=== PATIENT | female | born 1995 | race Asian ===

== ENCOUNTER 2020-01-01 03:22 | Emergency (ER) | payer BC, SELFPAY ==
[2020-01-01 03:27] VITALS: BP 123/76; PULSE 100; RESP 18; TEMP 37.1; O2SAT 100
--- NOTE | 2020-01-01 03:58 | ED.EYEPROB ---
HPI - Eye Problem General Chief complaint: Eye Problems Stated complaint: RIGHT EYE PROBLEM Time Seen by Provider: 01/01/20 03:29 History of Present Illness HPI Narrative: Pt c/o right eye redness and eyelid swelling, started tonight, denies any injury. Denies eye pain or visual disturbance. Pt states could be from exposure to a cat last night, which she is allergic to. Related Data Allergies Allergy/AdvReac Type Severity Reaction Status Date / Time cat dander Allergy Swelling Verified 01/01/20 03:26 Review of Systems Review of Systems: All systems reviewed & are unremarkable except as noted in HPI and below PMFSH Social History Social History Gender identity (if verbalized by the patient): Female Exam Const: General: healthy appearing, no acute distress and alert HENMT: Head: normal to inspection Eyes: Conjunctivae: abnormal conjunctivae and conjunctival abnormality (erythematous, injected, mild upper eyelid swelling) right and localized Course Vital Signs Vital signs: Vital Signs Temperature 37.1 C 01/01/20 03:27 Pulse Rate 100 01/01/20 03:27 Respiratory Rate 18 01/01/20 03:27 Blood Pressure 123/76 01/01/20 03:27 Pulse Oximetry 100 01/01/20 03:27 Temperature 37.1 C 01/01/20 03:27 Pulse Rate 100 01/01/20 03:27 Respiratory Rate 18 01/01/20 03:27 Blood Pressure 123/76 01/01/20 03:27 Pulse Oximetry 100 01/01/20 03:27 Discharge Plan Discharge Clinical Impression: Conjunctivitis Qualifiers: Conjunctivitis type: acute Acute conjunctivitis type: unspecified Laterality: right Qualified Code(s): H10.31 - Unspecified acute conjunctivitis, right eye Patient Disposition: Home, Self-Care Condition: Stable Instructions: Antibiotic Form, Conjunctivitis (ED) Additional Instructions: FOLLOW UP WITH AN EYE DOCTOR. FOLLOW UP WITH [facility] Prescriptions: New ciprofloxacin HCl 0.3 % drops See Rx Instructions .ROUTE .COMPLEX Qty: 5 RF: 0 prednisone 20 mg tablet 20 mg PO DAILY Qty: 3 RF: 0 Follow-up/Referrals: PHYSICIAN NOT ON STAFF,NONSTAFF [Primary Care Provider] - Time of Disposition: 04:03
== END 2020-01-01 04:27 | disposition home or self-care (01) ==
PROVIDERS: Emergency Provider Emergency Medicine
DX: H10.31 Unspecified acute conjunctivitis, right eye (principal)
CPT/HCPCS: 81025; 99283

== ENCOUNTER 2020-02-20 15:58 | Emergency (ER) | payer BC, SELFPAY ==
--- NOTE | ~2020-02-20 | XR_ITS ---
XR chest 2V DATE: 02/20/2020 16:25 INDICATION: Cough. Low right anterior chest pain TECHNIQUE: PA and lateral views COMPARISON: None FINDINGS: Normal heart size. No hilar or mediastinal enlargement. No pulmonary infiltrate or consolid ation, pleural effusion or pulmonary vascular congestion or pneumothorax. IMPRESSION: No active cardiopulmonary disease Reviewed, dictated and finalized at location A.
[2020-02-20 16:02] VITALS: BP 115/63; PULSE 87; RESP 19; TEMP 36.8; O2SAT 100
--- NOTE | 2020-02-20 16:19 | ED.GENADULT ---
HPI - General Adult General Chief complaint: Upper Respiratory Infection Stated complaint: chest hurts Time Seen by Provider: 02/20/20 16:19 Source: patient Mode of arrival: ambulatory Limitations: no limitations History of Present Illness HPI narrative: Cecilia Dawkins is a 24 yo female here complaining of right chest wall pain after lifting a bag of dog food. She had a fall a few months ago and had pain in the same area Related Data Allergies Allergy/AdvReac Type Severity Reaction Status Date / Time cat dander Allergy Swelling Verified 01/01/20 03:26 Review of Systems Review of Systems: Narrative: CONSTITUTIONAL: Denies fever, chills, sweats. EYES: Denies visual changes, redness, discharge. ENT: Denies rhinorrhea, congestion, sore throat, otalgia. CARDIOVASCULAR: Denies chest pain, palpitations, edema. RESPIRATORY: Denies dyspnea, wheezing, cough right-sided chest wall pain GASTROINTESTINAL: Denies abdominal pain, nausea, vomiting, diarrhea. GENITOURINARY: Denies dysuria, hematuria, abnormal discharge SKIN: Denies rash or itching. NEUROLOGIC: Denies numbness, or focal weakness. PSYCHIATRIC: Denies anxiety or depression. [facility] Family History Family History (Updated 02/20/20 @ 16:37 by Melida Keenan CNP) Other Diabetes mellitus High cholesterol Hypertension No active medical problems Social History Social History Smoking status: Never smoker Alcohol intake: never Gender identity (if verbalized by the patient): Female Comments At time of signature, I agree with nursing past medical, surgical, social and family history. There is no relevant family history pertinent to the presenting complaint. Exam Narrative: Exam Narrative: GENERAL: This is a well-nourished, well-developed patient, in mild distress. HEAD: normocephalic, atraumatic. EYES: PERRL. Sclera clear/white. Vision is grossly intact. EARS: External ears normal, auditory canals clear and without drainage, Hearing grossly intact. NOSE: External nose normal without nasal discharge, nares without redness, no rhinorrhea. THROAT: Mucous membranes moist, posterior pharynx NECK: Neck supple, non-tender CARDIOVASCULAR: Regular rate and rhythm without murmurs, gallops, or rubs. Moderate right-sided chest pain while speaking; nontender to palpation RESPIRATORY: Clear to auscultation. Breath sounds equal bilaterally. No wheezes, rales, or rhonchi. GASTROINTESTINAL: Abdomen soft, non-tender, SKIN: warm, intact with no suspicious lesions or rash, good texture and turgor. NEURO: awake, alert, and oriented to person, place and time. There were no obvious focal neurologic abnormalities. Steady gait EXTREMITIES: Normal range of motion. BACK: Nontender without deformity Course Course Emergency Course: Chest x-ray Vital Signs Vital signs: Vital Signs Temperature 98.2 F 02/20/20 16:02 Pulse Rate 87 02/20/20 16:02 Respiratory Rate 19 02/20/20 16:02 Blood Pressure 115/63 02/20/20 16:02 Pulse Oximetry 100 02/20/20 16:02 Temperature 98.2 F 02/20/20 16:02 Pulse Rate 87 02/20/20 16:02 Respiratory Rate 19 02/20/20 16:02 Blood Pressure 115/63 02/20/20 16:02 Pulse Oximetry 100 02/20/20 16:02 Medical Decision Making Differential Diagnosis Differential Diagnosis: Chest wall pain versus costochondritis versus rib fracture versus pneumonia Vital Signs Vital Signs: Vital Signs Temperature 98.2 F 02/20/20 16:02 Pulse Rate 87 02/20/20 16:02 Respiratory Rate 19 02/20/20 16:02 Blood Pressure 115/63 02/20/20 16:02 Pulse Oximetry 100 02/20/20 16:02 Temperature 98.2 F 02/20/20 16:02 Pulse Rate 87 02/20/20 16:02 Respiratory Rate 19 02/20/20 16:02 Blood Pressure 115/63 02/20/20 16:02 Pulse Oximetry 100 02/20/20 16:02 Discharge Plan Discharge Clinical Impression: Right-sided chest wall pain Patient Disposition: Home, Self-
== END 2020-02-20 16:42 | disposition home or self-care (01) ==
PROVIDERS: Emergency Provider Nurse Practitioner
DX: R07.89 Other chest pain (principal)
CPT/HCPCS: 71046; 99213; G0463

== ENCOUNTER 2020-04-02 17:37 | Emergency (ER) | payer BC, SELFPAY ==
--- NOTE | ~2020-04-02 | XR_ITS ---
EXAMINATION: XR abdomen/kub 1V INDICATION: Left ureterovesicular junction stone TECHNIQUE: Supine views of the abdomen were obtained on 2 radiographs. COMPARISON: CT from today FINDINGS: There is a faint 2 mm calcification in the left pelvis at the expected location of the uret erovesicular junction, corresponding to the stone identified on CT. A moderate volume of colonic stoo l is present. The bowel gas pattern is normal. The visualized lung bases are clear. IMPRESSION: 1. 2 mm left ureterovesicular junction stone. Reviewed, dictated and finalized at location A.
--- NOTE | ~2020-04-02 | CT_ITS ---
EXAMINATION: CT abdomen pelvis wo con DATE: 04/02/2020 18:48 INDICATION: Left flank pain TECHNIQUE: Computed tomography (CT) of the abdomen and pelvis was performed without intravenous contr ast. The dose-length product (DLP) was 166.34 mGy-cm. Automated exposure control and iterative recons truction technique were employed. COMPARISON: None FINDINGS: The lung bases are clear. The heart size is normal. A punctate calcification in the otherwi se normal liver is consistent with old granulomatous disease. The spleen, pancreas, gallbladder, and adrenal glands are normal. The right kidney is unremarkable. There is a 2 mm stone at the left ureter ovesicular junction with mild associated left hydroureteronephrosis. No pathologically enlarged abdom inal or pelvic lymph nodes are identified. There is no free intraperitoneal gas or evidence of bowel obstruction. IMPRESSION: 1. 2 mm stone at the left ureterovesicular junction causing mild left hydroureteronephrosis. Reviewed, dictated and finalized at location A. IMPRESSION: 1. 2 mm stone at the left ureterovesicular junction causing mild left hydrouret eronephrosis.
[2020-04-02 17:39] VITALS: BP 118/60; PULSE 106; RESP 16; TEMP 36.2; O2SAT 100
[2020-04-02 17:56] LABS: Basophils Absolute Auto 0.1 K/mm3 (0.0-0.1); Basophils Percent Auto 0.7 % (0.2-1.2); Eosinophils Absolute Auto 0.1 K/mm3 (0-0.3); Hematocrit 42.9 % (37.0-47.0); Hemoglobin 13.5 g/dL (12.0-15.0); Immature Granulocyte Absolute 0.04 K/mm3 (0.00-0.031); Immature Granulocyte Percent A 0.4 % (0-0.5); Lymphocytes Absolute Auto 2.55 K/mm3 (0.9-3.2); Lymphocytes Percent Auto 25.4 % (18.3-44.2); Mean Corpuscular HGB Conc 31.5 g/dl (32-36); Mean Corpuscular Hemoglobin 25.7 pg (26-34); Mean Corpuscular Volume 81.6 fl (80-100); Mean Platelet Volume 9.8 fl (7.4-10.4); Monocytes Absolute Auto 0.6 K/mm3 (0.1-0.6); Monocytes Percent Auto 5.7 % (2.6-8.5); Neutrophils Absolute Auto 6.7 K/mm3 (1.3-6.7); Neutrophils Percent Auto 66.8 % (45.5-73.1); Platelet Count Result 406 k/mm3 (150-375); Red Blood Count 5.26 M/mm3 (4.2-5.4)
--- NOTE | 2020-04-02 18:03 | ED.ABDPAIN ---
HPI - Abdominal Pain General Chief Complaint: Urogenital-Female Stated Complaint: FLANK PAIN Time Seen by Provider: 04/02/20 17:59 Source: RN notes reviewed History of Present Illness HPI narrative: Patient presents emergency department from home for left abdominal pain. Patient states that symptoms began approximately 2 hours ago. Patient states pain was sudden on onset. Pain is located in the left mid abdomen and radiates in the left flank and this is described as sharp and stabbing. Denies any fevers or chills chest pain shortness of breath nausea vomiting diarrhea or any other symptoms states she is taken no previous pain medication for the symptoms Related Data Allergies Allergy/AdvReac Type Severity Reaction Status Date / Time cat dander Allergy Swelling Verified 01/01/20 03:26 Review of Systems Review of Systems: Narrative: Gen.: Denies fevers or chills ENT: Denies congestion Respiratory: Denies shortness of breath or cough CV: Denies chest pain or palpitations GI: See HPI denies burning, urgency, frequency or hematuria Musculoskeletal: Denies back pain or muscle pain Neuro: Denies numbness, tingling, weakness or focal weakness Skin: Denies rash Except as documented, all other systems reviewed and negative [facility] Past Medical History Medical History (Updated 04/02/20 @ 19:09 by Christian Alexander DO) Patient denies significant medical history Family History Family History (Updated 02/20/20 @ 16:37 by Melida Keenan CNP) Other Diabetes mellitus High cholesterol Hypertension No active medical problems Social History Social History Smoking status: Never smoker Alcohol intake: never Gender identity (if verbalized by the patient): Female Exam Narrative: Exam Narrative: APPEARANCE: No acute distress, nontoxic, resting in bed EYES: EOMI HEENT: Normocephalic, atraumatic, OMM RESPIRATORY: No respiratory distress Clear to auscultation bilaterally with no rhonchi wheezing or rales. CARDIOVASCULAR: Regular rate and rhythm without murmurs rubs or gallops. ABDOMINAL: Soft, n nondistended, tender palpation left upper quadrant left lower quadrant, no tenderness right upper quadrant right lower quadrant, rebound or guarding, left flank tenderness MUSCULOSKELETAl: Moves all extremities. No clubbing, cyanosis or edema. NEURO: Awake and alert. Following commands, speech normal, no focal deficits SKIN:: Warm, dry. No rashes lesions or abrasions PSYCHIATRIC: Normal affect/mood, Course Course Emergency Course: Discussed with patient results of workup and diagnosis. Discussed need for follow-up with primary care, proper use of medication, and reasons to return to the emergency department. Patient understands and agrees to current treatment plan Vital Signs Vital signs: Vital Signs Temperature 97.1 F L 04/02/20 17:39 Pulse Rate 106 H 04/02/20 17:39 Respiratory Rate 16 04/02/20 17:39 Blood Pressure 118/60 04/02/20 17:39 Pulse Oximetry 100 04/02/20 17:39 Temperature 97.1 F L 04/02/20 18:53 Pulse Rate 106 H 04/02/20 17:39 Respiratory Rate 16 04/02/20 17:39 Blood Pressure 118/60 04/02/20 17:39 Pulse Oximetry 100 04/02/20 17:39 MDM - Abdominal Pain Lab Data Result diagrams: 04/02/20 17:47 04/02/20 17:47 Labs: Lab Results 04/02/20 04/02/20 04/02/20 Range/Units 17:47 17:47 18:12 WBC 10.0 (4.5-10.0) K/mm3 RBC 5.26 (4.2-5.4) M/mm3 Hgb 13.5 (12.0-15.0) g/dL Hct 42.9 (37.0-47.0) % MCV 81.6 (80-100) fl MCH 25.7 L (26-34) pg MCHC 31.5 L (32-36) g/dl RDW 13.0 (11.5-14.5) % Plt Count 406 H (150-375) k/mm3 MPV 9.8 (7.4-10.4) fl Immature Gran % (Auto) 0.4 (0-0.5) % Neut % (Auto) 66.8 (45.5-73.1) % Lymph % (Auto) 25.4 (18.3-44.2) % [place] % (Auto) 5.7 (2.6-8.5) % Eos % (Auto) 1.0 (0-4.4) % Baso % (Auto) 0.7 (0.2-
[2020-04-02 18:07] LABS: Blood Urea Nitrogen 12 mg/dL (7-17); Calcium 9.4 mg/dL (8.4-10.2); Carbon Dioxide 21 mmol/L (22-30); Chloride 105 mmol/L (98-107); Estimated CRCL calculation 90 ml/min; Estimated Glomerular Filt Rate > 60; Glucose 116 mg/dL (65-105); Potassium 3.5 mmol/L (3.4-5.0); Sodium 136 mmol/L (137-145)
[2020-04-02] MEDS: KETOROLAC 30 MG/ML VIAL (*BKC) IV PUSH (18:10)
[2020-04-02] MEDS: SODIUM CHLORIDE 0.9% IV 1,000 ML 999 ML IV CONT (18:10)
[2020-04-02 18:22] LABS: Add Urine Microscopic? YES; Appearance Urine Cloudy (Clear); Bacteria Urine Trace /hpf; Bilirubin Urine Negative (Negative); Blood Urine 3+ (Negative); Color Urine Yellow (Yellow); Glucose Urine UA Negative (Negative); Ketones Urine Trace mg/dL (Negative); Leukocyte Esterase Ur Negative LEU/UL (Negative); Mucus Urine Moderate /lpf; Nitrate Urine Negative (Negative); Protein Urine Negative (Negative); RBC Urine 21-50 /hpf (0-2); Specific Grav Ur 1.023 (1.001-1.035); Squamous Epithelial Cell Urine Many /hpf (Few); Urobilinogen Urine Negative mg/dL (<2.0); WBC Urine 0-3 /hpf
[2020-04-02 18:53] VITALS: TEMP 36.2
[2020-04-02] MEDS: MORPHINE SULFATE 2 MG/ML INJ IV PUSH (19:18)
[2020-04-02] MEDS: TAMSULOSIN HCL 0.4 MG CAPSULE PO (19:19)
[2020-04-02 19:35] VITALS: BP 124/73; PULSE 87; RESP 14; TEMP 36.6; O2SAT 100
[2020-04-02 19:48] VITALS: TEMP 36.6
[2020-04-02 20:18] VITALS: BP 112/67; PULSE 83; RESP 16; TEMP 36.4; O2SAT 98
== END 2020-04-02 20:20 | disposition home or self-care (01) ==
PROVIDERS: Emergency Medicine; Emergency Provider Emergency Medicine
DX: N13.2 Hydronephrosis with renal and ureteral calculous obstruction (principal)
CPT/HCPCS: 36415; 74018; 74176; 80048; 81001; 81025; 85025; 96361; 96374; 96375; 99284; A9270; J1885; J2270; J7030

== ENCOUNTER 2020-08-23 11:23 | Emergency (ER) | payer SELFPAY ==
[2020-08-23 11:31] VITALS: BP 132/85; PULSE 93; RESP 16; TEMP 36.8; O2SAT 100
--- NOTE | 2020-08-23 11:32 | ECG_ITS ---
Measurements Intervals [place] Rate: 74 P: 57 MT: 142 QRS: 66 QRSD: 85 T: 43 QT: 382 QTc: 425 Interpretive Statements SINUS RHYTHM NORMAL ECG Electronically Signed On 08-23-2020 12:28:29 CDT by Estevan Paulino D.O.
[2020-08-23 11:40] VITALS: BP 112/77; PULSE 82
[2020-08-23 11:41] VITALS: BP 109/74; PULSE 72
[2020-08-23 11:42] VITALS: BP 112/75; PULSE 86
[2020-08-23 11:42] LABS: Glucose Point of Care 95 (65-105)
--- NOTE | 2020-08-23 12:02 | ED.WEAKNESS ---
HPI - Weakness General Chief complaint: Weakness Stated complaint: weak/faint/breathing issues Time Seen by Provider: 08/23/20 11:34 Source: patient and RN notes reviewed Mode of arrival: ambulatory Limitations: no limitations History of Present Illness HPI Narrative: Patient presents today complaining of feeling weak and faint since she woke up this morning. States she was feeling normally when she went to bed last night other than vomiting once yesterday during the day. History of asthma, but states it is no worse than normal. Denies recent illness or known sick contacts. Associated symptoms include some chest discomfort, numbness and tingling in all 4 extremities, and some anxiety. Denies history of anxiety or panic attacks. Denies any cardiac history. Denies fever, headache, vision changes, ear pain or pressure, congestion, rhinorrhea, current nausea, or shortness of breath. States she used to have syncopal episodes as a child. Took an Uber to urgent care today as she did not feel like she could drive. 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 Related Data Home Medications Medication Instructions Recorded Confirmed racepinephrine 1 amp CONTINUOUS NEBULIZATION PRN 08/23/20 08/23/20 Allergies Allergy/AdvReac Type Severity Reaction Status Date / Time cat dander Allergy Swelling Verified 08/23/20 11:45 Review of Systems Review of Systems: Narrative: CONSTITUTIONAL: Denies body aches, fever, chills, or sweats. EYES: Denies visual changes, redness, or discharge. ENT: Denies rhinorrhea, congestion, sore throat, or otalgia. CARDIOVASCULAR: Denies palpitations, or edema. + Chest discomfort RESPIRATORY: Denies cough or dyspnea. GASTROINTESTINAL: Denies abdominal pain, nausea, vomiting, or diarrhea. GENITOURINARY: Denies dysuria or hematuria. SKIN: Denies rash, itching, or wounds. MUSCULOSKELETAL: Denies back pain, joint pain, or myalgia. NEUROLOGIC:+ Tingling in the extremities, lightheadedness, dizziness, weakness. Denies headache PSYCH: Denies depression or anxiety. [facility] Past Medical History Medical History (Updated 08/23/20 @ 12:08 by Fani Treviño, [employer], [place]) Asthma Seasonal allergies Family History Family History (Updated 02/20/20 @ 16:37 by Melida Keenan, [employer]) Other Diabetes mellitus High cholesterol Hypertension No active medical problems Social History Social History Smoking status: Never smoker Alcohol intake: never Gender identity (if verbalized by the patient): Female Exam Narrative: Exam Narrative: GENERAL: Well-appearing, well-nourished, and in no acute distress. HEAD: Normocephalic, atraumatic. EYES: EOMI. No redness or drainage. Conjunctivae normal. ENT: Mucous membranes pink and moist. Nares clear. No rhinorrhea. TMs normal bilaterally. Throat normal. Uvula midline. NECK: Normal AROM. Supple. No lymphadenopathy. CHEST: No respiratory distress. Clear to auscultation. Sternum is tender to palpation. HEART: Regular rate and rhythm. No murmur appreciated. Normal peripheral pulses. ABDOMEN: Soft, nontender, nondistended, normal active bowel sounds. MUSCULOSKELETAL: No bony tenderness. EXTREMITIES: Normal range of motion. No edema. SKIN: Warm, dry, no rash. Capillary refill normal. Normal skin turgor. NEURO: No focal deficits. Alert and oriented x3. Gait steady. 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 Discussed that it is recommended that she go to the ER for further evaluation of her symptoms as [facility] did not have any other testing capabilities. States that she agrees, but cannot miss the class. She is AOx3 and is not under the influence of drugs or alcohol and is able to make her own medical decisions. She understands that she will be leaving AM. Risks discussed, up to and including . States she will go to [facility] ER when sh
== END 2020-08-23 12:04 | disposition left against medical advice (07) ==
PROVIDERS: Emergency Provider Nurse Practitioner
DX: R42 Dizziness and giddiness (principal); J45.909 Unspecified asthma, uncomplicated
CPT/HCPCS: 82948; 93005; 99213; G0463

== ENCOUNTER 2021-10-02 20:46 | Emergency (ER) | payer OTHER, SELFPAY ==
--- NOTE | ~2021-10-02 | XR_ITS ---
EXAMINATION: XR chest 2V DATE: 10/02/2021 21:06 INDICATION: 3 days of cough TECHNIQUE: PA and lateral views of the chest were obtained. COMPARISON: Chest radiograph dated 02/20/2020 FINDINGS: The lungs remain clear with no focal airspace opacities, pulmonary edema, pleural effusion or pneumot horax. The cardiomediastinal silhouette is normal. Visualized bones and soft tissues are unremarkable . IMPRESSION: 1. No acute cardiopulmonary disease. Reviewed, dictated and finalized at location A. ERNITY [facility]SE COOK
[2021-10-02 20:50] VITALS: BP 123/83; PULSE 102; RESP 19; TEMP 36.4; O2SAT 98
[2021-10-02] MEDS: predniSONE 20 MG TABLET 40 MG PO (21:46)
[2021-10-02] MEDS: ALBUTEROL SULFATE NEB 2.5 MG/0.5 ML INH 20 MG INHALATION (22:34)
[2021-10-02 22:47] VITALS: PULSE 78; RESP 26
[2021-10-02] MEDS: IPRATROPIUM BR 0.02% INH SOLN 0.5 MG/2.5 ML VIAL 1.5 MG INHALATION (22:57)
--- NOTE | 2021-10-02 23:49 | ED.URI ---
HPI - URI/Sore Throat General Chief Complaint: Upper Respiratory Infection Stated Complaint: shortness of breath/cough Time Seen by Provider: 10/02/21 21:04 Source: patient History of Present Illness HPI Narrative: Patient presents with shortness of breath. Patient ports a history of asthma she is currently moving and does not have her inhalers or nebulized medications. She has had increasing shortness of breath for the past few days associated with a cough. She has not had fevers or congestion. She is concerned for bronchitis or asthma exacerbation cannot get control of her symptoms at home so she came to the ER for evaluation. She denies focal chest pain, nausea, vomiting, diarrhea, lightheadedness Related Data Allergies Allergy/AdvReac Type Severity Reaction Status Date / Time cat dander Allergy Swelling Verified 10/02/21 20:50 Review of Systems Review of Systems: CONSTITUTIONAL: Denies fever, chills, or sweats. EYES: Denies visual changes, redness, or discharge. ENT: Denies rhinorrhea, congestion, sore throat, or otalgia. CARDIOVASCULAR: Denies chest pain, palpitations, or edema. RESPIRATORY: Reports cough and shortness of breath GASTROINTESTINAL: Denies abdominal pain, nausea, vomiting, or diarrhea. GENITOURINARY: Denies dysuria or hematuria. SKIN: Denies rash or itching. MUSCULOSKELETAL: Denies back pain, joint pain, or myalgia. NEUROLOGIC: Denies headache, numbness, dizziness, or weakness. PSYCHIATRIC: Denies anxiety or depression. All systems reviewed & are unremarkable except as noted in HPI and below PMFSH Past Medical History Medical History Asthma Seasonal allergies Family History Family History Other Diabetes mellitus High cholesterol Hypertension No active medical problems Social History Social History Smoking status: Never smoker Alcohol intake: never Gender identity (if verbalized by the patient): Female Exam Narrative: GENERAL: Well-appearing, well-nourished, and in no acute distress. HEAD: Normocephalic, atraumatic. EYES: PERRLA and EOMI. ENT: Nares clear, no rhinorrhea or epistaxis. Mucous membranes moist. NECK: Supple. No masses. No JVD CHEST: Diminished aeration all lung roberts with mild wheezing HEART: Regular rate and rhythm. No murmur heard. Normal peripheral pulses. ABDOMEN: Soft, nontender, nondistended EXTREMITIES: Normal range of motion. No edema. SKIN: Warm, dry, no rash. NEURO: No focal deficits. Alert and oriented x3. PSYCH: Normal mood and affect. Course Reevaluation(s) Reevaluation #1: Patient is feeling much improved with DuoNeb therapies, is greatly diminished. Results and plan reviewed with patient. Patient is comfortable with outpatient plan. Date: 10/02/21 Time: 23:50 Vital Signs Vital signs: Vital Signs Temperature 36.4 C L 10/02/21 20:50 Pulse Rate 102 H 10/02/21 20:50 Respiratory Rate 19 10/02/21 20:50 Blood Pressure 123/83 10/02/21 20:50 Pulse Oximetry 98 10/02/21 20:50 Temperature 36.6 C 10/03/21 00:49 Pulse Rate 131 H 10/03/21 00:49 Respiratory Rate 20 10/03/21 00:49 Blood Pressure 123/83 10/02/21 20:50 Pulse Oximetry 98 10/03/21 00:49 MDM - URI/Sore Throat MDM Narrative Medical decision making narrative: H&P as above, vs with tachycardia likely related to therapies, pt looks clinically well, exam with mild wheezing, imaging without acute process, additional labs/img considered, symptomatic relief available as needed, patient treated with DuoNeb therapies and steroids on reevaluation pt continues to looks clinically well reports large improvement in symptoms. Suspect asthma exacerbation, dns pneumonia, severe sepsis, PE, dissection, pneumothorax. plan to tx/monitor as op w/ pcm f/u findings/plan discussed with pt, pt agree/comfortable with plan, re
[2021-10-03 00:26] VITALS: PULSE 132; RESP 24
[2021-10-03] MEDS: IBUPROFEN 400 MG TABLET PO (00:42)
[2021-10-03] MEDS: ACETAMINOPHEN 325 MG TABLET 650 MG PO (00:43)
[2021-10-03 00:49] VITALS: PULSE 131; RESP 20; TEMP 36.6; O2SAT 98
== END 2021-10-03 00:45 | disposition home or self-care (01) ==
PROVIDERS: Emergency Provider Emergency Medicine
DX: J45.901 Unspecified asthma with (acute) exacerbation (principal)
CPT/HCPCS: 71046; 94640; 99283; A9270; J7512

== ENCOUNTER 2022-05-21 07:51 | Emergency (ER) | payer SELFPAY ==
--- NOTE | ~2022-05-21 | CT_ITS ---
EXAMINATION: CT abdomen pelvis wo con DATE: 05/21/2022 09:45 INDICATION: Right lower quadrant abdominal pain, nausea and vomiting TECHNIQUE: Computed tomography (CT) of the abdomen and pelvis was performed without intravenous contr ast. Automated exposure control and iterative reconstruction technique were employed. The dose-length product was 227.19 mGy-cm. COMPARISON: 04/02/20 FINDINGS: Bases are clear. Heart size is normal. No pericardial or pleural effusion. Couple small calcification s in the left hepatic lobe consistent with old granulomatous disease. Gallbladder, spleen, pancreas, left kidney and bilateral adrenal glands and are normal. 2 mm obstructing stone at the right ureterov esicular junction with mild right hydronephrosis. There are couple additional punctate 1 mm stones in the right kidney. Decompressed bladder is normal. Anteverted uterus and bilateral adnexa are unremar kable. Bowels including the appendix are normal. No free intraperitoneal gas or fluid. No pathologica lly enlarged abdominal or pelvic lymphadenopathy. Bones are unremarkable. IMPRESSION: 1. 2 mm stone at the right ureterovesicular junction with mild right hydronephrosis. Reviewed, dictated and finalized at location A. IMPRESSION: 1. 2 mm stone at the right ureterovesicular junction with mild right hydronephr osis.
[2022-05-21 07:55] VITALS: BP 123/68; PULSE 59; RESP 16; TEMP 36.4; O2SAT 100
[2022-05-21 08:07] LABS: Basophils Percent Auto 0.5 % (0.2-1.2); Eosinophils Absolute Auto 0.2 K/mm3 (0-0.3); Eosinophils Percent Auto 1.9 % (0-4.4); Hematocrit 42.9 % (37.0-47.0); Hemoglobin 13.9 g/dL (12.0-15.0); Immature Granulocyte Absolute 0.03 K/mm3 (0.00-0.031); Immature Granulocyte Percent A 0.4 % (0-0.5); Lymphocytes Absolute Auto 3.66 K/mm3 (0.9-3.2); Lymphocytes Percent Auto 43.9 % (18.3-44.2); Mean Corpuscular HGB Conc 32.4 g/dl (32-36); Mean Corpuscular Hemoglobin 26.2 pg (26-34); Mean Corpuscular Volume 80.8 fl (80-100); Mean Platelet Volume 9.8 fl (7.4-10.4); Monocytes Absolute Auto 0.5 K/mm3 (0.1-0.6); Monocytes Percent Auto 6.5 % (2.6-8.5); Neutrophils Absolute Auto 3.9 K/mm3 (1.3-6.7); Neutrophils Percent Auto 46.8 % (45.5-73.1); Platelet Count Result 383 k/mm3 (150-375); Red Blood Count 5.31 M/mm3 (4.2-5.4); Red Cell Distribution Width 13.7 % (11.5-14.5); White Blood Count 8.3 K/mm3 (4.5-10.0)
[2022-05-21 08:17] LABS: Alanine Aminotransferase 21 U/L (6-35); Albumin Level 4.4 g/dL (3.5-5.1); Alkaline Phosphatase 56 U/L (38-126); Anion Gap 11 mmol/L (8-16); Aspartate Amino Transferase 27 U/L (14-36); Bilirubin,Total 0.5 mg/dL (0.2-1.3); Blood Urea Nitrogen 10 mg/dL (7-17); Calcium 8.7 mg/dL (8.4-10.2); Carbon Dioxide 23 mmol/L (22-30); Chloride 105 mmol/L (98-107); Estimated CRCL calculation 109 ml/min; Estimated Glomerular Filt Rate > 60; Glucose 123 mg/dL (65-110); Lipase 37 U/L (23-300); Potassium 3.6 mmol/L (3.4-5.0); Sodium 139 mmol/L (137-145)
[2022-05-21] MEDS: ONDANSETRON INJ 4 MG/2 ML VIAL IV PUSH (08:39)
[2022-05-21] MEDS: MORPHINE SULFATE (*CRX) 4 MG/ML INJ IV PUSH (08:39)
[2022-05-21] MEDS: KETOROLAC 30 MG/ML VIAL (*BKC) IV PUSH (08:40)
[2022-05-21 09:21] LABS: Appearance Urine Cloudy (Clear); Bilirubin Urine 1+ (Negative); Blood Urine 3+ (Negative); Color Urine Yellow (Yellow); Glucose Urine UA Negative (Negative); Ketones Urine Trace mg/dL (Negative); Leukocyte Esterase Ur Trace LEU/UL (Negative); Nitrate Urine Negative (Negative); Protein Urine 1+ mg/dL (Negative); Urobilinogen Urine 0.2 mg/dL (<2.0); pH Urine 7.5 (5.0-9.0)
[2022-05-21 09:35] LABS: Add Urine Microscopic? YES
[2022-05-21 09:36] LABS: Bacteria Urine Trace /hpf; Mucus Urine Moderate /lpf; RBC Urine >75 /hpf (0-2); Squamous Epithelial Cell Urine Many /hpf (Few)
--- NOTE | 2022-05-21 09:52 | ED.ABDPAIN ---
HPI - Abdominal Pain General Chief Complaint: Abdominal Pain Stated Complaint: kidney stones Time Seen by Provider: 05/21/22 08:33 History of Present Illness HPI narrative: 26-year-old female presents emergency room secondary to right lower quadrant right flank abdominal pain. Started suddenly this morning and very severe in nature. She has had kidney stone in the past she states this is same type pain is that. She is currently on her menstrual period. Denies any chills or fever. She has some nausea but no vomiting. Denies any dysuria. Related Data Allergies Allergy/AdvReac Type Severity Reaction Status Date / Time cat dander Allergy Swelling Verified 05/21/22 08:11 Review of Systems Review of Systems: CONSTITUTIONAL: Denies fever, chills, or sweats. EYES: Denies visual changes, redness, or discharge. ENT: Denies rhinorrhea, congestion, sore throat, or otalgia. CARDIOVASCULAR: Denies chest pain, palpitations, or edema. RESPIRATORY: Denies cough or dyspnea. GASTROINTESTINAL: Severe right-sided abdominal pain with associated nausea. GENITOURINARY: Denies dysuria or hematuria. SKIN: Denies rash or itching. MUSCULOSKELETAL: Denies back pain, joint pain, or myalgia. NEUROLOGIC: Denies headache, numbness, or weakness. PSYCHIATRIC: Denies anxiety or depression. [facility] Past Medical History Medical History Asthma Seasonal allergies Family History Family History Other Diabetes mellitus High cholesterol Hypertension No active medical problems Social History Social History Smoking status: Never smoker Alcohol intake: never Gender identity (if verbalized by the patient): Female Exam Narrative: APPEARANCE: Well appearing, well-nourished.. In moderate distress secondary to pain Head normocephalic and atraumatic. EYES: PERRLA/EOMI, conjunctivae very clear. NOSE: Normal with no drainage EARS:TMS clear Inga Capellan, with good light reflex. THROAT: Pharynx clear, no exudate. NECK: Supple. No adenopathy, no masses. RESPIRATORY: Airway patent, respirations nonlabored. Clear to auscultation bilaterally, no rales, rhonchi, wheezing. CARDIOVASCULAR: Regular rate and rhythm without murmurs, rubs, or gallops. ABDOMINAL: Soft, with severe tenderness to palpation in the right lower quadrant right flank area. No masses. Musculoskeletal: Moves all extremities. Strength/ROM intact, No edema, No calf tenderness. NEURO: Alert. Cranial nerves II through XII intact. Normal gait. Good coordination. Nonfocal examination. SKIN:: Warm, dry. Normal Color PSYCHIATRIC: Normal affect/mood, normal interaction Course Vital Signs Vital signs: Vital Signs Temperature 97.6 F 05/21/22 07:55 Pulse Rate 59 L 05/21/22 07:55 Respiratory Rate 16 05/21/22 07:55 Blood Pressure 123/68 05/21/22 07:55 Pulse Oximetry 100 05/21/22 07:55 Oxygen Delivery Room Air 05/21/22 07:55 Temperature 97.6 F 05/21/22 07:55 Pulse Rate 75 05/21/22 11:10 Respiratory Rate 18 05/21/22 11:10 Blood Pressure 93/81 L 05/21/22 11:10 Pulse Oximetry 100 05/21/22 11:10 Oxygen Delivery Room Air 05/21/22 07:55 MDM - Abdominal Pain MDM Narrative Medical decision making narrative: Patient has a small 2 mm distal right kidney stone. Able get her pain under control here in the emergency department. She will be discharged with medication to assist with pain and referral to urologist. Lab Data Result diagrams: 05/21/22 07:58 05/21/22 07:58 Labs: Lab Results 05/21/22 05/21/22 05/21/22 Range/Units 07:58 07:58 09:11 WBC 8.3 (4.5-10.0) K/mm3 RBC 5.31 (4.2-5.4) M/mm3 Hgb 13.9 (12.0-15.0) g/dL Hct 42.9 (37.0-47.0) % MCV 80.8 (80-100) fl MCH 26.2 (26-34) pg MCHC 32.4 (32-36) g/dl RDW 13.7 (11.5-14.5) %
[2022-05-21] MEDS: MORPHINE SULFATE (*CRX) 2 MG/ML INJ IV PUSH ×2 (09:57→10:40)
[2022-05-21 11:10] VITALS: BP 93/81; PULSE 75; RESP 18; O2SAT 100
[2022-05-21 11:34] VITALS: BP 108/68; PULSE 63; RESP 16; O2SAT 100
== END 2022-05-21 11:30 | disposition home or self-care (01) ==
PROVIDERS: Emergency Provider Emergency Medicine
DX: N13.2 Hydronephrosis with renal and ureteral calculous obstruction (principal); J45.909 Unspecified asthma, uncomplicated
CPT/HCPCS: 36415; 74176; 80053; 81001; 81025; 83690; 85025; 87077; 87086; 87088; 96365; 96375; 99284; J0131; J1885; J2270; J2405

== ENCOUNTER 2022-12-17 07:32 | Emergency (ER) | payer OTHER, SELFPAY ==
[2022-12-17 07:41] VITALS: BP 113/96; PULSE 77; RESP 20; TEMP 36.8; O2SAT 100
--- NOTE | 2022-12-17 07:50 | ED.ANIMALBIT ---
HPI - Animal Bite General Chief Complaint: Animal Bite Stated Complaint: dog bite Time Seen by Provider: 12/17/22 07:41 Source: patient and RN notes reviewed Mode of arrival: ambulatory Limitations: no limitations History of Present Illness HPI narrative: This is a 27 year old female who presents for evaluation of right facial lacerations from dog bite. She states approximately 1 hours ago her dog accidentally bit her. She reports her dog his history of epilepsy. She reports she felt dog having seizure so she leaned closer and he bit her face. She reports throbbing pain to right side of face where bites are located. She denies visual changes. She does wear glasses or contacts. She is unsure of her last tetanus immunization so she would like a tetanus shot. She has not taken any medications. Related Data Allergies Allergy/AdvReac Type Severity Reaction Status Date / Time cat dander Allergy Swelling Verified 12/17/22 07:48 Review of Systems Review of Systems: All systems reviewed & are unremarkable except as noted in HPI and below PMFSH Past Medical History Medical History Asthma Seasonal allergies Family History Family History Other Diabetes mellitus High cholesterol Hypertension No active medical problems Social History Social History Smoking status: Never smoker Alcohol intake: never Gender identity (if verbalized by the patient): Female Exam Const: General: alert Nutritional Appearance: well nourished Orientation/consciousness: patient oriented x3 HENMT: Head: laceration (right lateral forehead with 1.5 cm laceration; right eyelid with 1 cm lacer) Ears: external ears normal Mouth: Yes Normal oral and palatal mucosa present, Yes lip normal and Yes moist mucous membranes Throat: posterior oropharynx normal Other: small 1 cm laceration also at right temporal face Eyes: Conjunctivae: conjunctivae normal Pupils: Equal, round and reactive pupils present EOM: EOMs intact bilaterally Direct Ophthalmoscopy: no photophobia Neck: Neck: normal visual inspection Chest: Chest palpation & inspection: normal inspection of the chest Resp: Effort & Inspection: normal respiratory effort Auscultation: clear to auscultation bilaterally Cardio: Rate: regular rate Rhythm: regular rhythm Heart sounds: no murmurs Skin: Wounds: wounds noted (2 right forehead lacerations) Neuro: General: patient oriented x3, moves all extremities and CN's II-XI intact bilaterally Extrem: General: normal to inspection Psych: Mental Status: mental status grossly normal Affect: normal affect Attitude: cooperative Course Reevaluation(s) Reevaluation #1: Patient presents with 3 laceration to right upper face. There was a laceration to right upper eyelid that was already well approximated without bleeding . PAtient is agreeable to not place sutures there. I did place sutures to right forehead and right temporal. She understands infection risk. Discussed wound care. bite by her dog with up to date vaccination. No sign of eye ball injury Date: 12/17/22 Time: 09:15 Vital Signs Vital signs: Vital Signs Temperature 98.3 F 12/17/22 07:41 Pulse Rate 77 12/17/22 07:41 Respiratory Rate 20 12/17/22 07:41 Blood Pressure 113/96 H 12/17/22 07:41 Pulse Oximetry 100 12/17/22 07:41 Oxygen Delivery Room Air 12/17/22 07:41 Temperature 98.3 F 12/17/22 07:41 Pulse Rate 77 12/17/22 07:41 Respiratory Rate 20 12/17/22 07:41 Blood Pressure 113/96 H 12/17/22 07:41 Pulse Oximetry 100 12/17/22 07:41 Oxygen Delivery Room Air 12/17/22 07:41 Procedures Laceration Laceration 1: Date: 12/17/22 Time: 09:00 Site: face Side (If applicable): right Size (cm): 1.5 Description: linear and clean
[2022-12-17] MEDS: LIDOCAINE, EPINEPHRINE, TETRACAINE VISCOUS SOLN 3 ML TOPICAL (07:58)
[2022-12-17] MEDS: IBUPROFEN 600 MG TABLET PO (07:58)
[2022-12-17] MEDS: TETANUS,DIPHTHERIA,AC PERTUSSIS ADULT (0.5 ML) BOOSTRIX IM (07:58)
== END 2022-12-17 09:43 | disposition home or self-care (01) ==
LOC: ANHED 08:43
PROVIDERS: Emergency Provider General Practice
DX: S01.151A Open bite of right eyelid and periocular area, initial encounter (principal); S01.85XA Open bite of other part of head, initial encounter; Z23 Encounter for immunization; J45.909 Unspecified asthma, uncomplicated; W54.0XXA Bitten by dog, initial encounter
CPT/HCPCS: 12011; 90471; 90715; 99283; A9270

== ENCOUNTER 2023-04-18 19:37 | Emergency (ER) | payer OTHER, SELFPAY ==
[2023-04-18 19:42] VITALS: BP 128/76; PULSE 96; RESP 18; TEMP 36.6; O2SAT 100
--- NOTE | 2023-04-18 21:18 | ED.GENADULT ---
HPI - General Adult General Chief complaint: Dental/Oral Stated complaint: dental pain Time Seen by Provider: 04/18/23 19:50 History of Present Illness HPI narrative: This is a 27-year-old female presenting to the ED with dental pain. patient has been having dental pain for 2 days. She saw her dentist earlier today who performed a dental block. She needs to have her wisdom teeth out. She has antibiotics and opiate pain medication at home. She is here for pain relief. Related Data Allergies Allergy/AdvReac Type Severity Reaction Status Date / Time cat dander Allergy Swelling Verified 12/17/22 07:48 [facility] Past Medical History Medical History Asthma Seasonal allergies Family History Family History Other Diabetes mellitus High cholesterol Hypertension No active medical problems Social History Social History Smoking status: Never smoker Alcohol intake: never Gender identity (if verbalized by the patient): Female Exam Narrative: APPEARANCE: No apparent distress. Head: Poor dentition, swelling of the left lower wisdom tooth with a half buried tooth. EYES: EOMI, NOSE: Atraumatic NECK: Trachea midline RESPIRATORY: No increased rate of breathing CARDIOVASCULAR: RRR, ABDOMINAL: Non-distended MUSCULOSKELETAl: No obvious deformities NEURO: Alert. Moving 4/4 extremities SKIN:: Warm, dry. Normal color PSYCHIATRIC: Normal affect Course Vital Signs Vital signs: Vital Signs Temperature 98 F 04/18/23 19:42 Pulse Rate 96 04/18/23 19:42 Respiratory Rate 18 04/18/23 19:42 Blood Pressure 128/76 04/18/23 19:42 Pulse Oximetry 100 04/18/23 19:42 Oxygen Delivery Room Air 04/18/23 19:42 Temperature 98 F 04/18/23 19:42 Pulse Rate 96 04/18/23 19:42 Respiratory Rate 18 04/18/23 19:42 Blood Pressure 128/76 04/18/23 19:42 Pulse Oximetry 100 04/18/23 19:42 Oxygen Delivery Room Air 04/18/23 19:42 Procedures Nerve Block Nerve Block 1: Nerve block date: 04/18/23 Time out performed: Yes Local Anesthetic: bupivacaine 0.25% Amount of anesthesia used (mL): 5 Side: left Intraoral Nerve Block: inferior alveolar Procedure Successful: Yes Patient Tolerated Procedure: well Complications: none Medical Decision Making MDM Narrative Medical decision making narrative: -Presentation: 27-year-old female presenting with wisdom tooth pain. She has seen multiple physicians today. She has appropriate antibiotics and pain medication at home. She is seeking pain relief. 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 -RX Vital Signs Vital Signs: Vital Signs Temperature 98 F 04/18/23 19:42 Pulse Rate 96 04/18/23 19:42 Respiratory Rate 18 04/18/23 19:42 Blood Pressure 128/76 04/18/23 19:42 Pulse Oximetry 100 04/18/23 19:42 Oxygen Delivery Room Air 04/18/23 19:42 Temperature 98 F 04/18/23 19:42 Pulse Rate 96 04/18/23 19:42 Respiratory Rate 18 04/18/23 19:42 Blood Pressure 128/76 04/18/23 19:42 Pulse Oximetry 100 04/18/23 19:42 Oxygen Delivery Room Air 04/18/23 19:42 Discharge Plan Discharge Clinical Impression: Toothache Patient Disposi
[2023-04-18] MEDS: BUPivacaine HCL 0.25% PF 30 ML VIAL INFILTRATE (21:28)
[2023-04-18] MEDS: HYDROmorphone HCL INJ (*CRX) 1 MG/ML SYR IM (21:28)
[2023-04-18 21:46] VITALS: BP 130/95; PULSE 70; RESP 18; O2SAT 100
== END 2023-04-18 21:49 | disposition home or self-care (01) ==
PROVIDERS: Emergency Provider Emergency Medicine
DX: K08.89 Other specified disorders of teeth and supporting structures (principal); J45.909 Unspecified asthma, uncomplicated
CPT/HCPCS: 64999; 99283; J1170

== ENCOUNTER 2023-04-19 20:18 | Emergency (ER) | payer OTHER, SELFPAY ==
[2023-04-19 20:20] VITALS: BP 142/99; PULSE 101; RESP 19; TEMP 37.1; O2SAT 100
[2023-04-19] MEDS: LORazepam (*CRX) 0.5 MG TABLET PO (20:38)
--- NOTE | 2023-04-19 20:42 | ED.GENADULT ---
HPI - General Adult General Chief complaint: Dental/Oral <LISSET Mcmahon Last Filed: 04/20/23 02:52> Stated complaint: dental pain <LISSET Mcmahon Last Filed: 04/20/23 02:52> Time Seen by Provider: 04/19/23 20:24 <Chad Solitario PA-C - Last Filed: 04/20/23 02:52> Source: patient <LISSET Mcmahon Last Filed: 04/20/23 02:52> Mode of arrival: ambulatory <LISSET Mcmahon Last Filed: 04/20/23 02:52> Limitations: no limitations <LISSET Mcmahon Last Filed: 04/20/23 02:52> History of Present Illness HPI narrative: This is a 27-year-old female who presents to the ED with chief complaint of left-sided lower dental pain for the past week. Patient has an appointment with her dentist tomorrow morning for surgery for molar extraction. She is here tonight for pain control. Patient states that her dentist advised that she not get another nerve block before the surgery. She had an inferior alveolar block last night with good relief. Patient states she is anxious about the pain. Denies fevers, chills, swelling. <LISSET Mcmahon Last Filed: 04/20/23 02:52> Related Data Allergies/adverse reactions: Allergies Allergy/AdvReac Type Severity Reaction Status Date / Time cat dander Allergy Swelling Verified 04/19/23 20:34 <LISSET Mcmahon Last Filed: 04/20/23 02:52> Review of Systems Review of Systems: CONSTITUTIONAL: Denies fever, chills, or sweats. EYES: Denies visual changes, redness, or discharge. ENT: See HPI CARDIOVASCULAR: Denies chest pain, palpitations, or edema. RESPIRATORY: Denies cough or dyspnea. GASTROINTESTINAL: Denies abdominal pain, nausea, vomiting, or diarrhea. GENITOURINARY: Denies dysuria or hematuria. SKIN: Denies rash or itching. MUSCULOSKELETAL: Denies back pain, joint pain, or myalgia. NEUROLOGIC: Denies headache, numbness, dizziness, or weakness. PSYCHIATRIC: See HPI <Chad Solitario PA-C Last Filed: 04/20/23 02:52> [facility] Past Medical History Medical History: Medical History Asthma Seasonal allergies <Chad Solitario PA-C - Last Filed: 04/20/23 02:52> Family History Family History: Family History Other Diabetes mellitus High cholesterol Hypertension No active medical problems <Chad Solitario PA-C Last Filed: 04/20/23 02:52> Social History Social History: Social History Smoking status: Never smoker Alcohol intake: never Gender identity (if verbalized by the patient): Female <Chad Solitario PA-C Last Filed: 04/20/23 02:52> Exam Narrative: GENERAL: Appears somewhat anxious. Appears in pain. Conversational. HEAD: Normocephalic, atraumatic. EYES: PERRLA and EOMI. ENT: Nares clear, no rhinorrhea or epistaxis. Mucous membranes moist. Oropharynx without tonsillar hypertrophy exudate or other lesions. Impacted lower molars bilaterally, worse in the posterior most left-sided molar. No drainage or abscess visualized. Minimal erythema. No trismus or drooling. Floor the mouth is intact. No submandibular swelling. NECK: Supple. No adenopathy or masses. CHEST: No respiratory distress. Clear to auscultation. No wheezes rales or rhonchi HEART: Regular rate and rhythm. No murmur heard. Normal peripheral pulses. ABDOMEN: Soft, nontender, nondistended, normal active bowel sounds. MSK: Normal range of motion. No edema. SKIN: Warm, dry, no rash. NEURO: Alert and oriented x3. No focal deficits. PSYCH: Normal mood and affect. 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 I performed all aspects of the MDM as documented w/ the following additions: 27-year-old female presenting with dental pain and anxiety. I actuall
[2023-04-19] MEDS: HYDROcodone/acetaminophen (*CRX) 7.5-325 MG TABLET 1 TAB PO (20:56)
[2023-04-19] MEDS: KETOROLAC 30 MG/ML VIAL (*BKC) IM (21:51)
[2023-04-19] MEDS: LORazepam INJ (*CRX) 2 MG/ML VIAL 0.5 MG IM (22:05)
[2023-04-19] MEDS: HYDROmorphone HCL INJ (*CRX) 1 MG/ML SYR 0.5 MG IM (22:42)
[2023-04-19 22:46] VITALS: BP 129/84; PULSE 87; RESP 18; O2SAT 98
== END 2023-04-19 22:45 | disposition home or self-care (01) ==
PROVIDERS: Emergency Provider Physician Assistant
DX: K08.89 Other specified disorders of teeth and supporting structures (principal); F41.9 Anxiety disorder, unspecified; J45.909 Unspecified asthma, uncomplicated
CPT/HCPCS: 96372; 99284; A9270; J1170; J1885; J2060

== ENCOUNTER 2023-08-14 17:52 | Emergency (ER) | payer OTHER, SELFPAY ==
[2023-08-14] VITALS (7 sets, daily range): BP systolic 100–124; BP diastolic 58–88; PULSE 69–82; RESP 15–20; TEMP 36.7; O2SAT 98–100
--- NOTE | ~2023-08-14 | CT_ITS ---
EXAMINATION: CT abdomen pelvis w con DATE: 08/14/2023 19:04 INDICATION: Right lower quadrant abdominal pain. TECHNIQUE: Computed tomography (CT) of the abdomen and pelvis was performed with 100 mL Omnipaque 350 intravenous contrast. Automated exposure control and iterative reconstruction technique were employe d. The dose-length product was 279.19 mGy-cm. COMPARISON: CT abdomen and pelvis 05/21/2022 FINDINGS: The visualized portions of the lung bases demonstrate minimal atelectasis. No pleural effus ion. The heart size is normal. No pericardial effusion. The liver, gallbladder, spleen, pancreas, adr enal glands, and kidneys are normal. There are no dilated loops of bowel. The appendix is normal. The re are no pathologically enlarged lymph nodes. There is no ascites. The bones are unremarkable. IMPRESSION: 1. No etiology for the patient's symptoms. Reviewed, dictated and finalized at location E.
--- NOTE | 2023-08-14 18:37 | ED.ABDPAIN ---
HPI - Abdominal Pain General Chief Complaint: Abdominal Pain Stated Complaint: right flank pain Time Seen by Provider: 08/14/23 18:28 History of Present Illness HPI narrative: Patient is a 28-year-old female with a history of asthma presenting with abdominal pain. Patient states that for the last 5 hours she has had persistent right lower quadrant pain that is worsened with coughing and walking. States that she has a history of kidney stones and her pain is often on the right side of her abdomen but it is never persistent and it is typically not this severe. She denies nausea or vomiting, diarrhea. No dysuria or hematuria. No flank pain. No fevers or chills, chest pain, shortness of breath. Related Data Allergies Allergy/AdvReac Type Severity Reaction Status Date / Time cat dander Allergy Swelling Verified 04/19/23 20:34 Review of Systems Review of Systems: All systems reviewed & are unremarkable except as noted in HPI and below PMFSH Past Medical History Medical History Asthma Seasonal allergies Family History Family History Other Diabetes mellitus High cholesterol Hypertension No active medical problems Social History Social History Smoking status: Never smoker Alcohol intake: never Gender identity (if verbalized by the patient): Female Exam Narrative: GENERAL: Well-appearing and in no acute distress. Pleasant and cooperative HEAD: Normocephalic, atraumatic. EYES: PERRLA and EOMI. ENT: Mucous membranes moist. NECK: Supple. CHEST: Clear to auscultation. No respiratory distress. HEART: Regular rate and rhythm. ABDOMEN: Soft, + right lower quadrant tenderness, palpation of the left lower quadrant causes pain in the right lower quadrant, no guarding or rebound EXTREMITIES: Normal range of motion SKIN: Warm, dry, no rash. NEURO: alert and oriented x3. PSYCH: Normal mood and affect. Course Vital Signs Vital signs: Vital Signs Temperature 98.1 F 08/14/23 18:03 Pulse Rate 77 08/14/23 18:03 Respiratory Rate 15 08/14/23 18:03 Blood Pressure 107/73 08/14/23 18:03 Pulse Oximetry 100 08/14/23 18:03 Oxygen Delivery Room Air 08/14/23 18:03 Temperature 98.1 F 08/14/23 18:03 Pulse Rate 69 08/14/23 21:35 Respiratory Rate 19 08/14/23 21:35 Blood Pressure 105/74 08/14/23 21:35 Pulse Oximetry 98 08/14/23 21:35 Oxygen Delivery Room Air 08/14/23 18:03 MDM - Abdominal Pain MDM Narrative Medical decision making narrative: Patient is a 28-year-old female presenting with right lower quadrant pain for the last 5 hours. Vitals are stable. Exam remarkable for the above. Plan for blood work, CT abdomen pelvis, fluids, pain control. Blood work with mild leukocytosis. UA is unremarkable. CT abdomen pelvis without acute abnormalities. She does have a fair amount of stool in her bowels. Patient states that she has been struggling with constipation for the last several weeks since having a URI. We will start her on some MiraLAX and advised PCP follow-up. Appropriate return precautions given. Patient voiced understanding and is agreeable with plan. Discharged in stable condition. Differential Diagnosis Differential diagnosis: Likely abdominal pain, acute appendicitis, calculus of kidney, constipation, diverticulitis, gastroenteritis and pancreatitis Medical Records Attestation: I reviewed the patient's medical records. Lab Data Attestation: I reviewed the patient's lab results. 08/14/23 18:32 08/14/23 18:32 Labs: Lab Results 08/14/23 Range/Units 18:32 WBC 11.2 H (4.5-10.0) K/mm3 RBC 5.46 H (4.2-5.4) M/mm3 Hgb 14.0 (12.0-15.0) g/dL Hct 45.6 (37.0-47.0) % MCV 83.5 (80-100) fl MCH 25.6 L (26-34) pg MCHC 30.7 L (32-36) g/dl RDW
[2023-08-14 18:41] LABS: Basophils Absolute Auto 0.1 K/mm3 (0.0-0.1); Basophils Percent Auto 0.5 % (0.2-1.2); Eosinophils Absolute Auto 0.2 K/mm3 (0-0.3); Hematocrit 45.6 % (37.0-47.0); Immature Granulocyte Absolute 0.03 K/mm3 (0.00-0.031); Immature Granulocyte Percent A 0.3 % (0-0.5); Lymphocytes Absolute Auto 3.47 K/mm3 (0.9-3.2); Lymphocytes Percent Auto 31.1 % (18.3-44.2); Mean Corpuscular HGB Conc 30.7 g/dl (32-36); Mean Corpuscular Hemoglobin 25.6 pg (26-34); Mean Corpuscular Volume 83.5 fl (80-100); Mean Platelet Volume 9.8 fl (7.4-10.4); Monocytes Absolute Auto 0.6 K/mm3 (0.1-0.6); Neutrophils Absolute Auto 6.8 K/mm3 (1.3-6.7); Neutrophils Percent Auto 61.1 % (45.5-73.1); Platelet Count Result 428 k/mm3 (150-375); Red Blood Count 5.46 M/mm3 (4.2-5.4); Red Cell Distribution Width 13.4 % (11.5-14.5); White Blood Count 11.2 K/mm3 (4.5-10.0)
[2023-08-14 18:52] LABS: Alanine Aminotransferase 25 U/L (6-35); Albumin Level 4.6 g/dL (3.5-5.1); Alkaline Phosphatase 57 U/L (38-126); Anion Gap 8 mmol/L (8-16); Aspartate Amino Transferase 31 U/L (14-36); Bilirubin,Total 0.9 mg/dL (0.2-1.3); Blood Urea Nitrogen 8 mg/dL (7-17); Carbon Dioxide 25 mmol/L (22-30); Chloride 103 mmol/L (98-107); Estimated CRCL calculation 107 ml/min; Estimated Glomerular Filt Rate > 60; Glucose 108 mg/dL (65-110); Lipase 47 U/L (23-300); Potassium 3.5 mmol/L (3.4-5.0); Sodium 136 mmol/L (137-145)
[2023-08-14 18:59] LABS: Appearance Urine Clear (Clear); Bacteria Urine None Seen /hpf; Bilirubin Urine Negative (Negative); Color Urine Yellow (Yellow); Glucose Urine UA Negative (Negative); Ketones Urine 2+ mg/dL (Negative); Leukocyte Esterase Ur Negative LEU/UL (Negative); Nitrate Urine Negative (Negative); Non Pathogenic Casts 0-2; Protein Urine Negative (Negative); Specific Grav Ur 1.024 (1.001-1.035); Squamous Epithelial Cell Urine None seen /hpf (Few); Urobilinogen Urine 0.2 mg/dL (<2.0); WBC Urine 0-5 /hpf
--- NOTE | 2023-08-14 19:07 | PC.NURSE ---
Assumed care of pt from SULMA Lovett at this time.
[2023-08-14 19:11] LABS: Add Urine Microscopic? YES
[2023-08-14] MEDS: HYDROmorphone HCL INJ (*CRX) 1 MG/ML SYR 0.5 MG IV PUSH (19:16)
[2023-08-14] MEDS: SODIUM CHLORIDE 0.9% IV 1,000 ML 999 ML IV CONT (19:16)
[2023-08-14] MEDS: KETOROLAC 30 MG/ML VIAL (*BKC) IV PUSH (19:33)
[2023-08-14] MEDS: ACETAMINOPHEN 500 MG TABLET 1000 MG PO (21:28)
[2023-08-14] MEDS: DICYCLOMINE HCL 10 MG CAPSULE 20 MG PO (21:28)
== END 2023-08-14 21:38 | disposition home or self-care (01) ==
LOC: ANHED 18:48
PROVIDERS: Emergency Medicine; Emergency Provider Emergency Medicine
DX: R10.31 Right lower quadrant pain (principal); J45.909 Unspecified asthma, uncomplicated
CPT/HCPCS: 36415; 74177; 80053; 81001; 81025; 83690; 85025; 96361; 96374; 96375; 99284; A9270; J1170; J1885; J7030; Q9967

== ENCOUNTER 2023-11-03 05:31 | Emergency (ER) | payer OTHER, SELFPAY ==
--- NOTE | ~2023-11-03 | US_ITS ---
US pelvic complete DATE: 11/03/2023 08:43 INDICATION: Left lower pelvic pain TECHNIQUE: Real-time and color flow imaging, Doppler analysis via transabdominal approach only COMPARISON: 11/03/2023 CT abdomen pelvis FINDINGS: The uterus measures 5.8 cm height, 2.5 cm AP dimension. The central endometrial echo comple x measures 3.2 mm AP dimension, within normal limits. The ovaries appear normal. There is vascular flow to both ovaries. No abnormal free pelvic fluid kalyan ection is detected. IMPRESSION: No significant abnormality Reviewed, dictated and finalized at Location A. Reviewed, dictated and finalized at location A. 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
--- NOTE | ~2023-11-03 | CT_ITS ---
EXAMINATION: CT abdomen pelvis wo con DATE: 11/03/2023 06:52 INDICATION: Hematuria. Suprapubic abdominal pain. TECHNIQUE: Computed tomography (CT) of the abdomen and pelvis was performed without intravenous contr ast. Automated exposure control and iterative reconstruction technique were employed. Exam dose: 172 .77 mGy-cm total exam DLP. COMPARISON: 08/14/2023 CT abdomen pelvis FINDINGS: The lung bases are clear of infiltrate or consolidation. Normal heart size. No pericardial or pleural effusion. The liver is unremarkable except for some calcifications of the lateral segment of the left hepatic l obe, likely calcified granulomas. Normal splenic size. No pancreatic mass lesion, calcification or pancreatic duct dilatation. The gallbladder is present. No gallbladder wall thickening or pericholecystic stranding or fluid kalyan ection is detected. No bile duct dilatation. Normal morphology of the adrenal glands. Punctate nonobstructing upper pole left renal calculus. No renal mass lesion is evident. No ureteral calculus or hydroureteronephrosis. The urinary bladder, uterus and adnexal areas are unremarkable. Normal caliber of the abdominal aorta. No intraperitoneal or retroperitoneal or pelvic mass lesion or adenopathy or ascites. Normal appendix. No bowel obstruction or intraperitoneal free air. IMPRESSION: Left hepatic calcification, possibly calcified granulomas Pinpoint nonobstructing upper pole left renal calculus Normal appendix Reviewed, dictated and finalized at Location A. Reviewed, dictated and finalized at location A. 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
[2023-11-03 05:35] VITALS: BP 130/63; PULSE 59; RESP 16; TEMP 36.6; O2SAT 99
[2023-11-03 05:59] LABS: Basophils Percent Auto 0.5 % (0.2-1.2); Eosinophils Absolute Auto 0.2 K/mm3 (0-0.3); Eosinophils Percent Auto 1.9 % (0-4.4); Hematocrit 46.7 % (37.0-47.0); Immature Granulocyte Absolute 0.02 K/mm3 (0.00-0.031); Immature Granulocyte Percent A 0.2 % (0-0.5); Lymphocytes Absolute Auto 3.56 K/mm3 (0.9-3.2); Lymphocytes Percent Auto 42.3 % (18.3-44.2); Mean Corpuscular Hemoglobin 25.2 pg (26-34); Mean Corpuscular Volume 84.1 fl (80-100); Mean Platelet Volume 9.7 fl (7.4-10.4); Monocytes Absolute Auto 0.5 K/mm3 (0.1-0.6); Monocytes Percent Auto 5.4 % (2.6-8.5); Neutrophils Absolute Auto 4.2 K/mm3 (1.3-6.7); Neutrophils Percent Auto 49.7 % (45.5-73.1); Platelet Count Result 452 k/mm3 (150-375); Red Blood Count 5.55 M/mm3 (4.2-5.4); Red Cell Distribution Width 13.7 % (11.5-14.5); White Blood Count 8.4 K/mm3 (4.5-10.0)
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
[2023-11-03] MEDS: ONDANSETRON INJ 4 MG/2 ML VIAL IV PUSH (06:07)
[2023-11-03] MEDS: HYDROmorphone HCL INJ (*CRX) 1 MG/ML SYR 0.5 MG IV PUSH (06:08)
[2023-11-03 06:11] LABS: Appearance Urine Clear (Clear); Blood Urine 1+ (Negative); Color Urine Yellow (Yellow); Glucose Urine UA Negative (Negative); Ketones Urine Negative (Negative); Nitrate Urine Negative (Negative); Protein Urine Negative (Negative); Specific Grav Ur 1.025 (1.001-1.035); pH Urine 5.5 (5.0-9.0)
[2023-11-03] MEDS: SODIUM CHLORIDE 0.9% IV 1,000 ML 999 ML IV CONT (06:11)
[2023-11-03 06:12] LABS: Add Urine Microscopic? YES; Bilirubin Urine Negative (Negative); Leukocyte Esterase Ur 1+ LEU/UL (Negative); Urobilinogen Urine 0.2 mg/dL (<2.0)
[2023-11-03 06:15] LABS: RBC Urine 0-2 /hpf (0-2)
[2023-11-03 06:16] LABS: Bacteria Urine 2+ /hpf; Squamous Epithelial Cell Urine Moderate /hpf (Few)
[2023-11-03 06:21] LABS: Alanine Aminotransferase 20 U/L (6-35); Albumin Level 4.3 g/dL (3.5-5.1); Alkaline Phosphatase 54 U/L (38-126); Anion Gap 9 mmol/L (8-16); Aspartate Amino Transferase 26 U/L (14-36); Bilirubin,Total 0.4 mg/dL (0.2-1.3); Blood Urea Nitrogen 15 mg/dL (7-17); Calcium 9.5 mg/dL (8.4-10.2); Carbon Dioxide 26 mmol/L (22-30); Chloride 104 mmol/L (98-107); Estimated CRCL calculation 91 ml/min; Estimated Glomerular Filt Rate > 60; Glucose 100 mg/dL (65-110); Potassium 3.9 mmol/L (3.4-5.0); Sodium 139 mmol/L (137-145)
--- NOTE | 2023-11-03 06:43 | PC.NURSE ---
Patient taken to CT via w/c at this time.
[2023-11-03 07:15] VITALS: BP 128/62; PULSE 56; RESP 14; O2SAT 100
[2023-11-03] MEDS: KETOROLAC 15 MG/ML VIAL (*BKC) IV PUSH ×2 (07:24→08:19)
--- NOTE | 2023-11-03 09:11 | PC.NURSE ---
Updated MD about pt pain status
[2023-11-03] MEDS: MORPHINE SULFATE (*CRX) 4 MG/ML INJ IV PUSH (09:15)
== END 2023-11-03 10:14 | disposition home or self-care (01) ==
PROVIDERS: Emergency Medicine; Emergency Provider General Practice
DX: R10.32 Left lower quadrant pain (principal); J45.909 Unspecified asthma, uncomplicated
CPT/HCPCS: 36415; 74176; 76856; 80053; 81001; 81025; 85025; 87086; 87088; 96361; 96374; 96375; 96376; 99284; J1170; J1885; J2270; J2405; J7030

== ENCOUNTER 2025-03-11 20:58 | Emergency (ER) | payer OTHER, SELFPAY ==
--- NOTE | ~2025-03-11 | CT_ITS ---
CT abdomen pelvis w con Ordering provider: Tosha Pratt PA-C History: 29 years Female with . RLQ pain . Comparison: November 03, 2023 Technique: CT abdomen and pelvis with IV and without oral contrast. Automated exposure control and it erative reconstruction technique were employed. The dose-length product was 233.58 mGy-cm. 100 mL Omn ipaque 350 was given IV. Findings: VISUALIZED LOWER CHEST: Normal. UPPER ABDOMINAL ORGANS: Liver: Normal. Gallbladder: Normal. Spleen: Normal. Stomach/duodenum: Normal. Pancreas: Normal. Adrenals: Normal. Kidneys: Normal. PELVIC ORGANS: The bladder is normal. Uterus: Normal. Right ovarian cyst measuring 2.2 cm. Slightly prominent right ovary measuring 3.7 x 2 .3 cm. BOWEL AND MESENTERY: Colon: No evidence of diverticulitis.. Fecal material is loaded in the colon. Normal appendix. Small Bowel: Normal. No obstruction. Peritoneum/mesentery: No free air or free fluid. No mesenteric lymphadenopathy. RETROPERITONEUM: Normal aorta. No retroperitoneal lymphadenopathy. MUSCULOSKELETAL: Superficial soft tissues: The superficial soft tissues are normal. Bones: Normal spine. IMPRESSION: 1. No evidence of appendicitis, diverticulitis or intestinal obstruction. 2. Slightly prominent right ovary with a cyst. if ovarian torsion is a clinical concern. further fatoumata luation advised. 3. Constipation. Reviewed, dictated and finalized at location [facility]. IMPRESSION: 1. No evidence of appendicitis, diverticulitis or intestinal obstruction. 2. Slightly prominent right ovary with a cyst. if ovarian torsion is a clinica l concern. further evaluation advised. 3. Constipation.
--- NOTE | ~2025-03-11 | US_ITS ---
Pelvic ultrasound. Clinical History: Pelvic pain, ovarian cyst Technique: Realtime transabdominal and transvaginal scanning of the pelvis was performed. Color flow Doppler and Doppler spectral analysis were performed. Findings: The uterus is anteverted. The endometrial stripe has a thickness of 9 mm. No focal mass is identified. The right ovary measures 2.3 x 3.4 x 2.4 cm. Complex right ovarian mass measures 2.2 cm in diameter, with cystic component and somewhat echogenic nodule. The left ovary measures 2.0 x 3.0 x 2.1 cm. No significant left ovarian or adnexal mass is seen. Vascular flow present in both ovaries on Doppler spectral analysis. There is no evidence of free fluid in the cul de sac. Impression: 2.2 cm complex right ovarian mass could reflect complex/hemorrhagic cyst versus small dermoid. No evidence for torsion. Reviewed, dictated and finalized at [facility]. Impression: 2.2 cm complex right ovarian mass could reflect complex/hemorrhagic cyst versus small dermoid. No evidence for torsion.
--- OUTSIDE RECORDS SUMMARY | 2025-03-11 21:00 | XMS_ITS | Encounter Summary ---
Author Organization [facility] Healthcare Address [address] [place] [address] Care Team Providers Care Pusher Operator Name Role Phone No, Physician Unavailable Odalis Myles MD Primary Care Provider Reason for Visit * Reason Comments Abdominal Pain Dull pain in her low er right abdomen, feels like pressure and fluid, tender to touch X 3 Butt pain, hurts like nerve pain with movement, like when she walks, or when she goes to the bath room, Encounter Details Date Type Department Care Team (Late st Contact Info) Description 03/11/2025 6:30 PM CDT Office Visit [facility] at [address] [address] Caro Melgoza NP [address] [place] [address] [address] [place] [address] RLQ abdominal pain (Primary Dx); Rectal pain Social History Tobacco Use Types Packs/Day Years Used Date Smoking Tobacco: Some Days Vaping Smokeless Tobacco: Never Comments:No Hx of cigarettes . 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 Gender Identity Not on file Sexual Orientation Not on file documented as of this encounter Last Filed Vital Signs Vital Sign Reading Time Taken Comments Blood Pressure 109/73 03/11/2025 6:33 PM CDT Pulse 89 03/11/2025 6:33 PM CDT Temperature 37.3 C (99.2 F) 03/11/2025 6:33 PM CDT Respiratory Rate 18 03/11/2025 6:33 PM CDT Oxygen Saturation 98% 03/11/2025 6:33 PM CDT Inhaled Oxygen Concentration - - Weight 56.7 kg (125 lb 1.6 oz) 03/11/2025 6:33 P M CDT Height 154.9 cm (5' 0.98 ) 03/11/2025 6:33 PM CD T Body Mass Index 23.65 03/11/2025 6:33 PM CDT documented in this encounter Progress Notes * Caro Melgoza, OPTICAL EFFECTS LINE UP PERSON - 03/11/2025 6:30 PM CDT Images from the original note were not included. Subjective/Objective Patient ID: Cecilia Dawkins is a 29 y.o. female. Chief Complaint Abdominal Pain (Dull pain in her lower right abdomen, feels like pressure and fluid, tender to touch X 3 /Butt pain, hurts like nerve pain with movement, like when she walks, or when she goes to the bath room, ) Patient presents to the clinic with reports of abdominal pain in her right lower side and rectal pain for 3 days. Patient denies fevers, vomiting, and injury. Patient reports the pain is almost constant and increases with movement or pressure to either area. Patient denies chance of . Patient denies any history of abdominal surgeries. She has taken OTC medicine for her symptoms. Review of Systems Constitutional: Negative for chills, fatigue and fever. Respiratory: Negative for cough. Cardiovascular: Negative for chest pain. Gastrointestinal: Positive for abdominal pain (RLQ) and rectal pain. Negative for diarrhea, nausea and vomiting. Neurological: Negative for weakness and headaches. Physical Exam Vitals reviewed. Constitutional: General: She is not in acute distress. Appearance: Normal appearance. She is not ill-appearing. HENT: Head: Normocephalic. Mouth/Throat: Lips: [place]. Cardiovascular: Rate and Rhythm: Normal rate. Pulmonary: Effort: Pulmonary effort is normal. Breath sounds: Normal breath sounds. Abdominal: General: Bowel sounds are normal. Palpations: Abdomen is soft. Tenderness: There is abdominal tenderness in the right lower quadrant and periumbilical area. Thereis no guarding. Comments: Patient declined rectal exam Skin: General: Skin is warm. Neurological: Mental Status: She is alert and oriented to person, place, and time. Psychiatric: Mood and Affect: Mood normal. Vitals: 03/11/25 1833 BP: 109/73 Pulse: 89 Resp: 18 Temp: 37.3 ??C (99.2 ??F) SpO2: 98% Weight: 56.7 kg (125 lb 1.6 oz) Height: 154.9 cm (5' 0.98 ) Assessment/Plan --Sending patient to the ER to rule out acute abdomen giving right lower quadrant pain and rectal pain. Patient verbalized understanding and declined EMS. Patient's is with her and will driveher to the ER. Diagnoses and all orders for this visit: RLQ abdominal pain (Primary) Rectal pain Patient Education: --GO TO ER Disposition Treatment plan including expectations, follow up, and return precautions discussed with patient/parent, verbalizes understanding. Medication dosage, use, and potential adverse reactions discussed with patient/parent. Advised to follow up with PCP if symptoms do not resolve as expected or sooner if condition worsens. Signs/symptoms warranting ER evaluation reviewed. Patient and/or guardian was given an opportunity to ask questions, questions answered. Caro Melgoza NP 03/11/25 6:51 PM This office note has been partially dictated using BioData software, and as a result portions of the record may have been created with this software. Occasional wrong-word or '[id number]' substitutions may have occurred due to the inherent limitations of voice recognition software. Read the chartcarefully and recognize, using context, where substitutions have occurred. documented in this encounter Plan of Treatment Not on file documented as of this encounter Visit Diagnoses Diagnosis RLQ abdominal pain- Primary Abdominal pain, right lower quadrant Rectal pain Anal or rectal pain documented in this encounter Care Teams Pusher Operator Relationship Specialty Start Date End Date Odalis Myles MD PCP - General Family Medicine 02/01/24 No, Physician 12/13/23 documented as of this encounter
--- OUTSIDE RECORDS SUMMARY | 2025-03-11 21:00 | XMS_ITS | Clinical Summary ---
Author Organization [facility] Address [address] [place] [address] Care Team Providers Care Short Haul Driver Name Role Phone Unavailable Primary Care Provider Unavailabl e Social History Tobacco Use Types Packs/Day Years Used Date Smoking Tobacco: Never Assessed Comments Unknown Sex and Gender Information Value Date Recorded Sex Assigned at Not on file Legal Sex Female 4:40 PM CDT Gender Identity Not on file Sexual Orientation Not on file Plan of Treatment Health Maintenance Due Date Last Done Comments Hepatitis C Virus (HCV) Screening 1997 TdaP Immunization 1997 Human Papillomavirus (HPV) Immunization (1 - 3-dose series) 2012 Hepatitis B Immunization (1 of 3 - 19+ 3-dose series) 2016 Pap Smear 2018 Influenza Immunization (#1) 2024 SARS-COV-2 Immunization ( season) 2024 03/02/2021 Respiratory Syncytial Virus (RSV) Immunization (Adult) (1 - 1-dose 75+ series) 2072 Meningococcal Immunization (ACWY) Aged Out No longer eligible based on patient's age to complete this topic Pneumococcal Immunization Combined Aged Out No longer eligible based on patient's age to complete this topic Rotavirus Immunization Aged Out No lo nger eligible based on patient's age to complete this topic
--- OUTSIDE RECORDS SUMMARY | 2025-03-11 21:00 | XMS_ITS | Clinical Summary ---
Author Organization [facility] Address [address] [place] [address] Care Team Providers Care Cyber Security Architect Name Role Phone Donovan Miramontes DO Primary Care Provider [phone] Allergies No known active allergies Medications No known medications Active Problems Problem Noted Date Diagnosed Date Sprain of right ankle, unspe cified ligament, subsequent encounter 02/21/2023 Chronic pain of right ankle 02/21/2023 Unspecified injury of intrin sic muscle and tendon at ankle and foot level, right foot, sequela 02/21/2023 Costochondritis 02/21/2023 Immunizations Immunization Administration Dates Next Due PFIZER COVID-19 (ORIGINAL FO RMULATION, PURPLE CAP) mRNA, LNP-S, PF, 30 MCG/0.3 ML DOSE 08/16/2021,03/02/2021 Tdap (Generic) 12/17/2022 Family History Medical History Relation Comments Alcohol Abuse Father Cancer Maternal Aunt Arthritis Mother Asthma Mother Diabetes Mother Hypertension Mother Miscarriages / Stillbirths Mother Relation Status Comments Father Maternal Aunt Mother Social History Tobacco Use Types Packs/Day Years Used Date Smoking Tobacco: Never Smokeless Tobacco: Never Comments:Vaping, no cigarett es Alcohol Use Standard Drinks/Week Comments Yes 1.7 (1 standard drink = 0.6 oz p ure alcohol) PHQ-2 Answer Date Recorded Patient Health Questionnaire-2 Score 0 02/21/2023 Comments No Sex and Gender Information Value Date Recorded Sex Assigned at Not on file Legal Sex Female 11:44 AM CDT Gender Identity Not on file Sexual Orientation Not on file Last Filed Vital Signs Vital Sign Reading Time Taken Comments Blood Pressure 103/71 02/21/2023 8:30 AM CDT Pulse 78 02/21/2023 8:30 AM CDT Temperature 37.4 C (99.3 F) 02/21/2023 8:30 AM CDT Respiratory Rate 18 02/21/2023 8:30 AM CDT Oxygen Saturation 97% 02/21/2023 8:30 AM CDT Inhaled Oxygen Concentration - - Weight 55 kg (121 lb 3.2 oz) 02/21/2023 8:30 AM CDT Height 154.9 cm (5' 1 ) 02/21/2023 8:30 AM CDT Body Mass Index 22.9 02/21/2023 8:30 AM CDT Plan of Treatment Health Maintenance Due Date Last Done Comments Cervical Cancer Screening Pa p Smear (Age 21 to 29) Every 3 Years 1997 Cervical Cancer Screening 1997 Annual Physical 2000 Hepatitis C 2015 Hepatitis B Vaccines (1 of 3 - 19+ 3-dose series) 2016 COVID-19 Vaccine (3 - 2023-2 5 season) 2024 08/16/2021, 03/02/2021 PHQ-2 (Physician Tribal) 11/12/2024 DTaP, Tdap and Td Vaccines ( 2 - Td or Tdap) 12/17/2032 12/17/2022 HPV Vaccines Aged Out No longer eligi ble based on patient's age to complete this topic Meningococcal B Vaccine Aged Out No l onger eligible based on patient's age to complete this topic Meningococcal Vaccine Aged Out No vincenzo yolette eligible based on patient's age to complete this topic Pneumococcal Vaccine: Pediatrics (0 to 5 Years) and At-Risk Patients (6 to 49 Years) Aged Out No longer eligible b ased on patient's age to complete this topic RSV Immunizations Under 20 Months Aged Out No longer eligible b ased on patient's age to complete this topic Insurance [facility] Care Teams Cyber Security Architect Relationship Specialty Start Date End Date Donovan Miramontes DO [address] [place] [address] PCP - General FAMILY PRACTICE 02/15/23
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
[2025-03-11 21:03] VITALS: BP 90/74; PULSE 92; RESP 20; TEMP 36.9; O2SAT 100
[2025-03-11 22:00] VITALS: BP 107/67; PULSE 91; RESP 14; TEMP 37.1; O2SAT 100
[2025-03-11 22:04] LABS: BEDSIDEPREGUCG Negative (Negative)
[2025-03-11 22:12] LABS: Basophils Absolute Auto 0.1 K/mm3 (0.0-0.1); Basophils Percent Auto 0.5 % (0.2-1.2); Eosinophils Absolute Auto 0.1 K/mm3 (0-0.3); Hematocrit 46.3 % (37.0-47.0); Hemoglobin 14.1 g/dL (12.0-15.0); Immature Granulocyte Absolute 0.03 K/mm3 (0.00-0.031); Immature Granulocyte Percent A 0.2 % (0-0.5); Lymphocytes Absolute Auto 3.78 K/mm3 (0.9-3.2); Lymphocytes Percent Auto 29.5 % (18.3-44.2); Mean Corpuscular HGB Conc 30.5 g/dl (32-36); Mean Corpuscular Hemoglobin 25.5 pg (26-34); Mean Corpuscular Volume 83.6 fl (80-100); Mean Platelet Volume 9.6 fl (7.4-10.4); Monocytes Absolute Auto 0.7 K/mm3 (0.1-0.6); Monocytes Percent Auto 5.5 % (2.6-8.5); Neutrophils Absolute Auto 8.1 K/mm3 (1.3-6.7); Neutrophils Percent Auto 63.3 % (45.5-73.1); Platelet Count Result 435 k/mm3 (150-375); Red Blood Count 5.54 M/mm3 (4.2-5.4); Red Cell Distribution Width 13.9 % (11.5-14.5); White Blood Count 12.8 K/mm3 (4.5-10.0)
[2025-03-11 22:20] LABS: Alanine Aminotransferase 32 U/L (6-35); Albumin Level 4.5 g/dL (3.5-5.1); Alkaline Phosphatase 49 U/L (38-126); Anion Gap 10 mmol/L (4-12); Aspartate Amino Transferase 47 U/L (14-36); Bilirubin,Total 0.4 mg/dL (0.2-1.3); Blood Urea Nitrogen 11 mg/dL (7-17); Calcium 9.5 mg/dL (8.4-10.2); Carbon Dioxide 28 mmol/L (22-30); Chloride 101 mmol/L (98-107); Estimated CRCL calculation 108 ml/min; Estimated Glomerular Filt Rate > 60; Glucose 92 mg/dL (65-110); Lipase 88 U/L (23-300); Potassium 4.1 mmol/L (3.4-5.0); Sodium 139 mmol/L (137-145)
[2025-03-11 22:22] LABS: Add Urine Microscopic? NO; Appearance Urine Clear (Clear); Bilirubin Urine Negative (Negative); Blood Urine Negative (Negative); Color Urine Yellow (Yellow); Glucose Urine UA Negative (Negative); Ketones Urine Negative (Negative); Leukocyte Esterase Ur Negative LEU/UL (Negative); Nitrate Urine Negative (Negative); Protein Urine Negative (Negative); Specific Grav Ur 1.016 (1.001-1.035); Urobilinogen Urine 0.2 mg/dL (<2.0)
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
--- OUTSIDE RECORDS SUMMARY | 2025-03-11 23:02 | XMS_ITS | Encounter Summary ---
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 HENT: Head: Normocephalic. Mouth/Throat: Lips: [place]. Cardiovascular: Rate and Rhythm: Normal rate. Pulmonary: [...] office note has been partially dictated using VR1 software, and as a result portions of the record may have been created with this software. Occasional wrong-word or '[id number]' substitutions may have occurred due to the inherent limitations of voice recognition software. Read the chartcarefully and recognize, using context, where substitutions have occurred. documented in this encounter Plan of Treatment Not on file documented as of this encounter Visit Diagnoses Diagnosis RLQ abdominal pain- Primary Abdominal pain, right lower quadrant Rectal pain Anal or rectal pain documented in this encounter Care Teams Java Manager Relationship Specialty Start Date End Date Odalis Myles MD PCP - General Family Medicine 02/01/24 No, Physician 12/13/23 documented as of this encounter
--- OUTSIDE RECORDS SUMMARY | 2025-03-11 23:02 | XMS_ITS | Clinical Summary ---
Author Organization [address] Address [address] [place] [id number] Care Team Providers Care Military Cook Name Role Phone No, Physician Unavailable Odalis [...] referral to physical therapy. Monitor symptoms. Continue [id number] pain medications. I see no indication for [...] Description 03/11/2025 6:30 PM CDT Office Visit [facility] Medical [facility] Care at [address] [address] Caro Melgoza, MILIND RLQ abdominal pain (Primary Dx); Rectal pain from Last 3 Months Immunizations Immunization Administration Dates Next Due Tdap 12/17/2022 Surgical History Surgery Date Site/Laterality Comments WISDOM TOOTH EXTRACTION had significant impaction needing urgent surgery Medical History Medical History Date Comments Kidney stone multiple in past . 2019 and 2020? 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
--- OUTSIDE RECORDS SUMMARY | 2025-03-11 23:02 | XMS_ITS | Clinical Summary ---
Author Organization [facility] Address [address] [place] [id number] Care Team Providers Care Hotel Registration Clerk Name Role Phone Unavailable Primary Care Provider [...]
--- OUTSIDE RECORDS SUMMARY | 2025-03-11 23:02 | XMS_ITS | Clinical Summary ---
Author Organization [facility] Address [address] [place] [id number] Care Team Providers Care Hat And Cap Parts Cutter Hand Name Role Phone Donovan Miramontes DO Primary Care Provider Allergies No known active allergies Medications No [...] 5 season) 2024 08/16/2021, 03/02/2021 PHQ-2 (Physician [facility]) 11/12/2024 DTaP, Tdap and Td Vaccines ( [...] patient's age to complete this topic Insurance [facility] Care Teams Hat And Cap Parts Cutter Hand Relationship Specialty Start Date End Date Donovan Miramontes DO [address] [place] [address] PCP - General FAMILY PRACTICE 02/15/23
--- OUTSIDE RECORDS SUMMARY | 2025-03-11 23:02 | XMS_ITS | Referral Summary ---
Author Organization [address] [address] Care Team Providers Care Profile Grinder Name Role Phone No, Physician Unavailable Odalis Myles MD Primary Care Provider Encounters Date Type Department Care Team Description 03/11/2025 6:30 PM CDT Office Visit [facility] Medical Group Convenient Care at [address] [address] Caro Melgoza NP RLQ abdominal [...] referral to physical therapy. Monitor symptoms. Continue wzen-kyd-fxyoker pain medications. 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
--- NOTE | 2025-03-11 23:05 | ED_ITS ---
HPI - Abdominal Pain General Chief Complaint: Abdominal Pain Stated Complaint: lower right abdomen pain Time Seen by Provider: 03/11/25 22:34 Source: patient Mode of arrival: ambulatory Limitations: no limitations History of Present Illness HPI narrative: This is a 29 year old female that presents to the ER for lower abdominal pain. Ongoing over the last two days. Reports associated nausea. Reports history of kidney stones. Denies fever, vomiting, dysuria, hematuria, diarrhea. Related Data Home Medications ?Medication ?Instructions ?Recorded ?Confirmed ?Last Taken ?Type cyclobenzaprine 10 mg tablet mg 11/03/23 Unknown History ibuprofen 600 mg tablet mg 11/03/23 Unknown History lidocaine 4 % topical patch patch topical 11/03/23 Unknown History (Blue-Emu Lidocaine Patch) Allergies Allergy/AdvReac Type Severity Reaction Status Date / Time cat dander Allergy Swelling Verified 11/03/23 05:57 Review of Systems 2 Review of Systems: CONSTITUTIONAL: Denies fever GASTROINTESTINAL: Reports abdominal pain, nausea. Denies vomiting, or diarrhea. GENITOURINARY: Denies dysuria or hematuria. All systems reviewed & are unremarkable except as noted in HPI and below PMFSH Past Medical History Medical History Asthma Seasonal allergies Family History Family History Other Diabetes mellitus High cholesterol Hypertension No active medical problems Social History Social History Smoking status: Never smoker Alcohol intake: never Gender identity (if verbalized by the patient): Female Exam 2 Narrative: GENERAL: Well-appearing, well-nourished, and in no acute distress. HEAD: Normocephalic, atraumatic. EYES: EOMI. CHEST: Clear to auscultation. No respiratory distress. No wheezes rales or rhonchi HEART: Regular rate and rhythm. No murmur heard. Normal peripheral pulses. ABDOMEN: Soft, nondistended, normal active bowel sounds. Tender to palpation throughout the abdomen, without guarding EXTREMITIES: Normal range of motion. No edema. SKIN: Warm, dry, no rash. NEURO: No focal deficits. Alert and oriented x3. PSYCH: Normal mood and affect Course Course Emergency Course: Patient updated on workup agrees with plan of care Vital Signs Vital signs: Vital Signs Temperature 98.5 F 03/11/25 21:03 Pulse Rate 92 03/11/25 21:03 Respiratory Rate 20 03/11/25 21:03 Blood Pressure 90/74 L 03/11/25 21:03 Pulse Oximetry 100 03/11/25 21:03 Temperature 98.4 F 03/12/25 01:59 Pulse Rate 75 03/12/25 01:59 Respiratory Rate 16 03/12/25 01:59 Blood Pressure 109/63 03/12/25 01:59 Pulse Oximetry 96 03/12/25 01:59 MDM - Abdominal Pain MDM Narrative Medical decision making narrative: Patient presents the emergency department for right lower quadrant abdominal pain. She is afebrile and nontoxic appearing. Her vitals are stable. CBC with mild leukocytosis to 12.8. Metabolic panel without concerning findings. Urine without evidence of infection. test is negative. CT abdomen pelvis shows an ovarian cyst. Ultrasound obtained for further evaluation. No evidence of torsion. Patient updated on workup and agrees plan of care. Instructed to have further follow-up with gynecology. She was given warnings to return to the ER Differential Diagnosis Differential diagnosis: Likely acute appendicitis, calculus of kidney, constipation and other (Ovarian cyst rupture, ovarian torsion) Lab Data Attestation: I reviewed the patient's lab results. 03/11/25 22:01 03/11/25 22:01 Labs: Lab Results 03/11/25 03/11/25 Range/Units 22:01 22:02 WBC 12.8 H (4.5-10.0) K/mm3 RBC 5.54 H (4.2-5.4) M/mm3 Hgb 14.1 (12.0-15.0) g/dL Hct 46.3 (37.0-47.0) % MCV 83.6 (80-100) fl MCH 25.5 L (26-34) pg MCHC 30.5 L (32-36) g/dl RDW 13.9 (11.5-14.5) % Plt Count 435 H (150-375) k/mm3 MPV 9.6 (7.4-10.4) fl Immature Gran % (Auto) 0.2 (0-0.5) % Neut % (Auto) 63.3 (45.5-73.1) % Lymph % (Auto) 29.5 (18.3-44.2) % [place] % (Auto) 5.5 (2.6-8.5) % Eos % (Auto) 1.0 (0-4.4) % Baso % (Auto) 0.5 (0.2-1.2) % Lymph # (Auto) 3.78 H (0.9-3.2) K/mm3 [place] # (Auto) 0.7 H (0.1-0.6) K/mm3 Eos # (Auto) 0.1 (0-0.3) K/mm3 Baso # (Auto) 0.1 (0.0-0.1) K/mm3 Abs Immat Gran (auto) 0.03 (0.00-0.031) K/mm3 Absolute Neuts (auto) 8.1 H (1.3-6.7) K/mm3 Absolute Nucleated RBC 0.000 (0.0-0.012) K/mm3 Nucleated RBC % 0.0 (0.0-0.2) % Sodium 139 (137-145) mmol/L Potassium 4.1 (3.4-5.0) mmol/L Chloride 101 (98-107) mmol/L Carbon Dioxide 28 (22-30) mmol/L Anion Gap 10 (4-12) mmol/L BUN 11 (7-17) mg/dL Creatinine 0.49 L (0.7-1.0) mg/dL Estim Creat Clear Calc 108 ml/min Estimated GFR > 60 (59 - ) Glucose 92 (65-110) mg/dL Calcium 9.5 (8.4-10.2) mg/dL Total Bilirubin 0.4 (0.2-1.3) mg/dL AST 47 H (14-36) U/L ALT 32 (6-35) U/L Alkaline Phosphatase 49 (38-126) U/L Total Protein 8.0 (6.3-8.2) g/dL Albumin 4.5 (3.5-5.1) g/dL Lipase 88 (23-300) U/L Urine Color Yellow (Yellow) Urine Appearance Clear (Clear) Urine pH 8.0 (5.0-9.0) Ur Specific [place] 1.016 (1.001-1.035) Urine Protein Negative (Negative) mg/dL Urine Glucose (UA) Negative (Negative) mg/dL Urine Ketones Negative (Negative) mg/dL Ur Blood (Man) Negative (Negative) Urine Nitrate Negative (Negative) Urine Bilirubin Negative (Negative) Urine Urobilinogen 0.2 (<2.0) mg/dL Leukocyte Esterase Rfl Negative (Negative) LEX/UL POC Urine HCG, Qual Negative (Negative) Imaging Data Radiologist's impression: ITS Impressions Abdomen/Pelvis CT 03/11/25 23:40 IMPRESSION: 1. No evidence of appendicitis, diverticulitis or intestinal obstruction. 2. Slightly prominent right ovary with a cyst. if ovarian torsion is a clinical concern. further evaluation advised. 3. Constipation. Ultrasound pelvic: No evidence of ovarian torsion. No adnexal abnormality or pelvic free fluid. Complex right ovarian cyst, 2.2 x 2.1 cm, possibly hemorrhagic Critical Care Time Critical Care Time Critical Care Time: No Discharge Plan Discharge Clinical Impression: Ovarian cyst Qualifiers: Laterality: left Qualified Code(s): N83.202 - Unspecified ovarian cyst, left side Constipation Qualifiers: Constipation type: unspecified constipation type Qualified Code(s): K59.00 - Constipation, unspecified Patient Disposition: Home Condition: Stable Instructions: Ovarian Cyst (ED), Constipation (ED) Additional Instructions: Return to the ER if you experience fever, abdominal pain with nausea and vomiting, you are unable to keep down liquids or solids, or any other symptoms that are concerning to you Remain well hydrated. Tylenol or anti-inflammatories as needed for pain Follow up with gynecology Patient Language: Lithuanian Prescriptions: No Action albuterol sulfate 90 mcg/actuation HFA aerosol inhaler 2 puff inhalation QID PRN (Reason: shortness of breath or wheezing) Qty: 6.7 0RF cyclobenzaprine [Flexeril] 10 mg Tablet lidocaine [Blue-Emu Lidocaine Patch] 4 % Adhesive Patch,Medicated TOPICAL ibuprofen 600 mg tablet cephalexin 500 mg capsule 500 mg PO Q12H 7 Days Qty: 14 0RF naproxen 375 mg tablet 375 mg PO BID PRN (Reason: pain) Qty: 10 0RF Follow-up/Referrals: Andrzej Porter MD [Physician] - UNKNOWN,DOCTOR [Primary Care Provider] -
[2025-03-11] MEDS: MORPHINE SULFATE (*CRX) 4 MG/ML INJ IV PUSH (23:11)
[2025-03-11] MEDS: ONDANSETRON INJ 4 MG/2 ML VIAL IV PUSH (23:11)
[2025-03-11] MEDS: SODIUM CHLORIDE 0.9% IV 1,000 ML 999 ML IV CONT (23:11)
[2025-03-11 23:30] VITALS: BP 110/70; PULSE 76; RESP 14; O2SAT 99
[2025-03-12] VITALS (16 sets, daily range): BP systolic 82–109; BP diastolic 50–74; PULSE 74–75; RESP 16; TEMP 36.4–36.9; O2SAT 96–100
[2025-03-12] MEDS: KETOROLAC 15 MG/ML VIAL (*BKC) IV PUSH (00:28)
[2025-03-12] MEDS: ACETAMINOPHEN 500 MG TABLET 1000 MG PO (03:16)
--- NOTE | 2025-03-12 05:33 | PC.NURSE ---
pt continually asking for pain medications, and asked me give me something to just put me to sleep. EDP notified multiple times. Multiple medications given and at time of discharge pt again asked for more pain medications.
== END 2025-03-12 05:33 | disposition home or self-care (01) ==
PROVIDERS: Student in an Organized Health Care Education/Training Program; Emergency Provider Physician Assistant
DX: N83.201 Unspecified ovarian cyst, right side (principal); K59.00 Constipation, unspecified; J45.909 Unspecified asthma, uncomplicated; Z87.442 Personal history of urinary calculi
CPT/HCPCS: 36415; 74177; 76830; 76856; 80053; 81003; 81025; 83690; 85025; 96361; 96374; 96375; 99284; A9270; J1885; J2270; J2405; J7030; Q9967

== ENCOUNTER 2025-07-16 01:20 | Emergency (ER) | payer SELFPAY ==
[2025-07-16] VITALS (19 sets, daily range): BP systolic 90–135; BP diastolic 65–100; PULSE 76; RESP 20; TEMP 36.8; O2SAT 99–100
--- NOTE | ~2025-07-16 | CT_ITS ---
EXAMINATION: CT abdomen pelvis w con DATE: 07/16/2025 03:27 INDICATION: Right lower quadrant abdominal pain. TECHNIQUE: Computed tomography (CT) of the abdomen and pelvis was performed with 100 mL Omnipaque-350 intravenous contrast. Automated exposure control and iterative reconstruction technique were employed. The dose-length product was 260.97 mGy-cm. COMPARISON: CT dated 03/11/2024 FINDINGS: Lung bases are clear. Heart size is normal. No pericardial or pleural effusion. Liver, gallbladder, spleen, pancreas, bilateral adrenal glands and kidneys are normal. No urolithiasis or hydronephrosis. Bowels including the appendix are normal. 1.2 cm peripherally enhancing corpus luteum cyst at the right ovary. Left ovary, bladder and anteverted uterus are unremarkable. No free intraperitoneal gas or fluid. No pathologically enlarged abdominal or pelvic lymphadenopathy. Bones are unremarkable. IMPRESSION: 1. 1.2 cm corpus luteum cyst in the right ovary. No other acute intra- abdominal/pelvic process. Specifically the appendix is normal. Reviewed, dictated and finalized at location A. IMPRESSION: 1. 1.2 cm corpus luteum cyst in the right ovary. No other acute intra-abdominal /pelvic process. Specifically the appendix is normal.
--- OUTSIDE RECORDS SUMMARY | 2025-07-16 01:22 | XMS_ITS | Clinical Summary ---
Author Organization [facility] Address [address] [place] [id number] Care Team Providers Care Grab Operator Name Role Phone Donovan Miramontes DO Primary [...] 8:30 AM CDT Height 154.9 cm (5' 1) 02/21/2023 8:30 AM CDT Body Mass Index [...] - 2023-2 5 season) 2024 08/16/2021, 03/02/2021 HPV Vaccines (1 - 3-dose SCD M series) 2024 DTaP, Tdap and Td Vaccines ( 2 - Td or Tdap) 12/17/2032 12/17/2022 Meningococcal B Vaccine Aged Out No l [...] patient's age to complete this topic Insurance [id number] Care Teams Grab Operator Relationship Specialty Start Date End Date Donovan [place] [address] PCP - General FAMILY PRACTICE 02/15/23
--- OUTSIDE RECORDS SUMMARY | 2025-07-16 01:22 | XMS_ITS | Encounter Summary ---
Author Organization [facility] Healthcare Address [address] [place] [address] Care Team Providers Care Oracle Financials Developer Name Role Phone No, Physician Unavailable Odalis Myles MD Primary Care Provider Encounter Details Date Type Department Care Team (Late st Contact Info) Description 06/10/2025 Results Follow-Up [facility] Medical Group Convenient Care at [place] [id number] [place] [address] Mireya Echeverria PA [address] [place] [address] [address] [place] [address] XR Hand Right 3+ Vw Social History Tobacco Use Types Packs/Day Years [...] on file 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
--- OUTSIDE RECORDS SUMMARY | 2025-07-16 01:22 | XMS_ITS | Encounter Summary ---
Author Organization [facility] Healthcare Address [address] [place] [address] Care Team Providers Care Housing Inspectors Name Role Phone No, Physician Unavailable Odalis Myles MD Primary Care Provider Encounter Details Date Type Department Care Team (Late st Contact Info) Description 06/12/2025 Results Follow-Up [facility] Medical Group Convenient Care at [place] [address] [place] [address] Caro Melgoza NP [address] [facility] [address] [place] [address] XR Hand Left 3+ Vw Social History Tobacco Use Types [...] on file 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
--- OUTSIDE RECORDS SUMMARY | 2025-07-16 01:23 | XMS_ITS | Clinical Summary ---
Author Organization [facility] Address [address] [place] [id number] Care Team Providers Care Caddie Supervisor Name Role Phone Unavailable Primary Care Provider [...] Virus (HCV) Screening 1997 TdaP Immunization 1997 Hepatitis B Immunization (1 of 3 - 19+ 3-dose series) 2016 SARS-COV-2 Immunization (2 - season) 2024 03/02/2021 Human Papillomavirus (HPV) Immunization (1 - 3-dose SCDM series) 2024 Influenza Immunization (#1) 2025 Respiratory Syncytial Virus (RSV) Immunization (Adult) (1 [...]
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
--- OUTSIDE RECORDS SUMMARY | 2025-07-16 01:54 | XMS_ITS | Encounter Summary ---
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
--- OUTSIDE RECORDS SUMMARY | 2025-07-16 01:54 | XMS_ITS | Clinical Summary ---
Author Organization [facility] Address [address] [place] [phone] Care Team Providers Care Supervisor Cigarette Making Department Name Role Phone Unavailable Primary Care Provider [...] of 3 - 19+ 3-dose series) 2016 Human Papillomavirus (HPV) Immunization (1 - 3-dose SCDM series) 2024 Influenza Immunization (#1) 2025 SARS-COV-2 Immunization ( - season) 2025 03/02/2021 Respiratory Syncytial Virus (RSV) Immunization (Adult) [...]
--- OUTSIDE RECORDS SUMMARY | 2025-07-16 01:54 | XMS_ITS | Encounter Summary ---
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
--- OUTSIDE RECORDS SUMMARY | 2025-07-16 01:54 | XMS_ITS | Clinical Summary ---
Author Organization [address] Address [address] [place] [phone] Care Team Providers Care Fuel Truck Driver Name Role Phone No, Physician Unavailable Odalis [...] referral to physical therapy. Monitor symptoms. Continue [id number]-[id number] pain medications. I see no indication for [...] Description 06/12/2025 11:15 AM CDT Office Visit [facility] Convenient Care at [address] [phone] Caro Melgoza NP Left hand pain (Primary Dx) 06/12/2025 11:05 AM CDT Ancillary Procedure [facility] Imaging at [address] [phone] Left hand pain 06/12/2025 Results Follow-Up [facility] Convenient Care at [address] [phone] Caro Melgoza NP XR Hand Left 3+ Vw 06/10/2025 10:45 AM CDT Ancillary Procedure [facility] Imaging at [address] [phone] Hand pain, right 06/10/2025 10:15 AM CDT Office Visit [facility] Convenient Care at [address] [phone] Mireya Echeverria PA Hand pain, right (Primary Dx); Contact dermatitis, unspecified contact dermatitis type, unspecified trigger 06/10/2025 Results Follow-Up [facility] Convenient Care at [address] [phone] Mireya Echeverria PA XR Hand Right 3+ Vw from Last 3 Months Immunizations Immunization Administration Dates Next Due Tdap 12/17/2022 Surgical History Surgery Date Site/Laterality Comments WISDOM TOOTH EXTRACTION had significant impaction needing urgent surgery Medical History Medical History Date Comments Kidney stone multiple in past . 2019 and 2020? 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 ACCESS Care Teams Fuel Truck Driver Relationship Specialty Start Date End Date Odalis Myles MD PCP - General Family Medicine 02/01/24 No, Physician 12/13/23
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
--- OUTSIDE RECORDS SUMMARY | 2025-07-16 01:54 | XMS_ITS | Clinical Summary ---
Author Organization [facility] Address [address] [place] [address] Care Team Providers Care Billet Heater Operator Name Role Phone Donovan Miramontes DO [...] patient's age to complete this topic Insurance [id number] Care Teams Billet Heater Operator Relationship Specialty Start Date End Date Donovan [place] [address] PCP - General FAMILY PRACTICE 02/15/23
--- NOTE | 2025-07-16 02:01 | ED.FEMALEGU ---
HPI - Female Genitourinary General Chief complaint: Urogenital-Female Stated complaint: flank pain Time Seen by Provider: 07/16/25 01:48 History of Present Illness HPI Narrative: This is a 29-year-old female with history of kidney stones who presents to the ED for right lower quadrant abdominal pain. Patient states that she was work when she had onset of right lower quadrant abdominal pain with nausea and lightheadedness. She states that it feels very similar to her prior kidney stones. She did also strike. Earlier today which is 2 weeks earlier than normal despite her normally being Regular. Denies fevers, chills, chest pain, shortness of breath. Related Data Home Medications ?Medication ?Instructions ?Recorded ?Confirmed ?Last Taken ?Type cyclobenzaprine 10 mg tablet mg 11/03/23 Unknown History ibuprofen 600 mg tablet mg 11/03/23 Unknown History lidocaine 4 % topical patch patch topical 11/03/23 Unknown History (Blue-Emu Lidocaine Patch) Allergies Allergy/AdvReac Type Severity Reaction Status Date / Time cat dander Allergy Swelling Verified 07/16/25 01:26 Review of Systems Review of Systems: Gen.: Denies fevers or chills Eyes: Denies eye pain or visual change ENT: Denies congestion Respiratory: Denies shortness of breath or cough CV: Denies chest pain or palpitations GI: As per HPI denies burning, urgency, frequency or hematuria Musculoskeletal: Denies back pain or muscle pain Neuro: Denies numbness, tingling, weakness or focal weakness Skin: Denies rash Except as documented, all other systems reviewed and negative [facility] Past Medical History Medical History Asthma Seasonal allergies Family History Family History Other Diabetes mellitus High cholesterol Hypertension No active medical problems Social History Social History Smoking status: Never smoker Alcohol intake: never Gender identity (if verbalized by the patient): Female Exam Narrative: APPEARANCE: No acute distress, nontoxic, resting in bed EYES: EOMI HEENT: Normocephalic, atraumatic, OMM RESPIRATORY: No respiratory distress Clear to auscultation bilaterally with no rhonchi wheezing or rales. CARDIOVASCULAR: Regular rate and rhythm without murmurs rubs or gallops. ABDOMINAL: Soft, tenderness to palpation to the right lower quadrant. Negative Rovsing's sign. MUSCULOSKELETAl: Moves all extremities. No clubbing, cyanosis or edema. NEURO: Awake and alert. Following commands, speech normal, no focal deficits SKIN:: Warm, dry. No rashes lesions or abrasions PSYCHIATRIC: Normal affect/mood, Course Vital Signs Vital signs: Vital Signs Temperature 98.2 F 07/16/25 01:23 Pulse Rate 76 07/16/25 01:23 Respiratory Rate 20 07/16/25 01:23 Blood Pressure 118/80 07/16/25 01:23 Pulse Oximetry 99 07/16/25 01:23 Oxygen Delivery Room Air 07/16/25 01:23 Temperature 98.2 F 07/16/25 01:23 Pulse Rate 76 07/16/25 01:23 Respiratory Rate 20 07/16/25 01:23 Blood Pressure 118/80 07/16/25 01:23 Pulse Oximetry 99 07/16/25 01:23 Oxygen Delivery Room Air 07/16/25 01:23 MDM - Female Genitourinary MDM Narrative Medical decision making narrative: 29-year-old female presented to the ED for right lower quadrant abdominal pain. On initial evaluation, she was somewhat uncomfortable appearing, afebrile, hemodynamically stable. She had tenderness to palpation of the right lower quadrant. No tenderness at McBurney's point. Symptoms were less concerning for appendicitis. CBC and CMP without significant abnormalities. UA clear. CT abdomen/ pelvis showed mild colitis but no evidence of appendicitis or other intra-abdominal pathology. The patient did have improvement of her pain after Toradol and morphine and resolution of her nausea with Zofran. She will be given a prescription for Zofran. She was advised to take Tylenol and ibuprofen for pain. She was given referral to Family Medicine urination to establish care. Given history of ovarian cysts, she is also given referral to Gynecology. Patient was agreeable to this plan. Given strict return precautions. Differential Diagnosis Differential diagnosis: Likely other ( UTI, nephrolithiasis, colitis, enterocolitis, electrolyte abnormality, ovarian cyst) Medical Records Attestation: I reviewed the patient's medical records. Lab Data Attestation: I reviewed the patient's lab results. 07/16/25:58 07/16/25 01:58 Labs: Lab Results 07/16/25 07/16/25 07/16/25 Range/Units 01:58 02:51 03:53 WBC 9.1 (4.5-10.0) K/mm3 RBC 5.27 (4.2-5.4) M/mm3 Hgb 13.3 (12.0-15.0) g/dL Hct 42.9 (37.0-47.0) % MCV 81.4 (80-100) fl MCH 25.2 L (26-34) pg MCHC 31.0 L (32-36) g/dl RDW 13.2 (11.5-14.5) % Plt Count 405 H (150-375) k/mm3 MPV 9.5 (7.4-10.4) fl Immature Gran % (Auto) 0.2 (0-0.5) % Neut % (Auto) 55.0 (45.5-73.1) % Lymph % (Auto) 36.7 (18.3-44.2) % Maries % (Auto) 6.0 (2.6-8.5) % Eos % (Auto) 1.7 (0-4.4) % Baso % (Auto) 0.4 (0.2-1.2) % Lymph # (Auto) 3.33 H (0.9-3.2) K/mm3 Maries # (Auto) 0.5 (0.1-0.6) K/mm3 Eos # (Auto) 0.2 (0-0.3) K/mm3 Baso # (Auto) 0.0 (0.0-0.1) K/mm3 Abs Immat Gran (auto) 0.02 (0.00-0.031) K/mm3 Absolute Neuts (auto) 5.0 (1.3-6.7) K/mm3 Absolute Nucleated RBC 0.000 (0.0-0.012) K/mm3 Nucleated RBC % 0.0 (0.0-0.2) % Sodium 136 L (137-145) mmol/L Potassium 3.6 (3.4-5.0) mmol/L Chloride 101 (98-107) mmol/L Carbon Dioxide 26 (22-30) mmol/L Anion Gap 9 (4-12) mmol/L BUN 17 (7-17) mg/dL Creatinine 0.63 L (0.7-1.0) mg/dL Estim Creat Clear Calc 86 ml/min Estimated GFR > 60 (59 - ) Glucose 97 (65-110) mg/dL Calcium 9.6 (8.4-10.2) mg/dL Total Bilirubin 0.8 (0.2-1.3) mg/dL AST 25 (14-36) U/L ALT 18 (6-35) U/L Alkaline Phosphatase 55 (38-126) U/L Total Protein 8.1 (6.3-8.2) g/dL Albumin 4.5 (3.5-5.1) g/dL Serum HCG, Qual Negative Urine Color Yellow (Yellow) Urine Appearance Cloudy H (Clear) Urine pH 5.5 (5.0-9.0) Ur Specific [place] > 1.045 H (1.001-1.035) Urine Protein Negative (Negative) mg/dL Urine Glucose (UA) Negative (Negative) mg/dL Urine Ketones 1+ H (Negative) mg/dL Ur Blood (Man) Trace (Negative) Urine Nitrate Negative (Negative) Urine Bilirubin Negative (Negative) Urine Urobilinogen 0.2 (<2.0) mg/dL Leukocyte Esterase Rfl Negative (Negative) LEX/UL Urine RBC 0-2 (0-2) /hpf Urine WBC 0-5 (0-3) /hpf Ur Squamous Epith Cells None seen (Few) /hpf Urine Bacteria None seen /hpf Urine Casts 0-2 POC Urine HCG, Qual (Negative) 07/16/25 Range/Units 03:57 WBC (4.5-10.0) K/mm3 RBC (4.2-5.4) M/mm3 Hgb (12.0-15.0) g/dL Hct (37.0-47.0) % MCV (80-100) fl MCH (26-34) pg MCHC (32-36) g/dl RDW (11.5-14.5) % Plt Count (150-375) k/mm3 MPV (7.4-10.4) fl Immature Gran % (Auto) (0-0.5) % Neut % (Auto) (45.5-73.1) % Lymph % (Auto) (18.3-44.2) % Maries % (Auto) (2.6-8.5) % Eos % (Auto) (0-4.4) % Baso % (Auto) (0.2-1.2) % Lymph # (Auto) (0.9-3.2) K/mm3 Maries # (Auto) (0.1-0.6) K/mm3 Eos # (Auto) (0-0.3) K/mm3 Baso # (Auto) (0.0-0.1) K/mm3 Abs Immat Gran (auto) (0.00-0.031) K/mm3 Absolute Neuts (auto) (1.3-6.7) K/mm3 Absolute Nucleated RBC (0.0-0.012) K/mm3 Nucleated RBC % (0.0-0.2) % Sodium (137-145) mmol/L Potassium (3.4-5.0) mmol/L Chloride (98-107) mmol/L Carbon Dioxide (22-30) mmol/L Anion Gap (4-12) mmol/L BUN (7-17) mg/dL Creatinine (0.7-1.0) mg/dL Estim Creat Clear Calc ml/min Estimated GFR (59 - ) Glucose (65-110) mg/dL Calcium (8.4-10.2) mg/dL Total Bilirubin (0.2-1.3) mg/dL AST (14-36) U/L ALT (6-35) U/L Alkaline Phosphatase (38-126) U/L Total Protein (6.3-8.2) g/dL Albumin (3.5-5.1) g/dL Serum HCG, Qual Urine Color (Yellow) Urine Appearance (Clear) Urine pH (5.0-9.0) Ur Specific [place] (1.001-1.035) Urine Protein (Negative) mg/dL Urine Glucose (UA) (Negative) mg/dL Urine Ketones (Negative) mg/dL Ur Blood (Man) (Negative) Urine Nitrate (Negative) Urine Bilirubin (Negative) Urine Urobilinogen (<2.0) mg/dL Leukocyte Esterase Rfl (Negative) LEX/UL Urine RBC (0-2) /hpf Urine WBC (0-3) /hpf Ur Squamous Epith Cells (Few) /hpf Urine Bacteria /hpf Urine Casts POC Urine HCG, Qual Negative (Negative) Imaging Data Radiologist's impression: per [facility]: Findings suggestive of mild colitis. No associated obstruction. Normal appendix. No renal obstruction or stone. Discharge Plan Discharge Clinical Impression: Colitis Patient Disposition: Home Condition: Stable Instructions: Antibiotic Form, Colitis (ED) Additional Instructions: take Tylenol and ibuprofen for pain. He may also take Zofran. Drink plenty of p.o. fluids. Consider a bland diet. Follow up with Gynecology regarding history of ovarian cyst. Return to the ED for any new or worsening symptoms. Patient Language: Albanian Prescriptions: New ondansetron 4 mg tablet,disintegrating 4 mg PO Q8H PRN (Reason: nausea and vomiting) Qty: 14 0RF No Action albuterol sulfate 90 mcg/actuation HFA aerosol inhaler 2 puff inhalation QID PRN (Reason: shortness of breath or wheezing) Qty: 6.7 0RF cyclobenzaprine [Flexeril] 10 mg Tablet lidocaine [Blue-Emu Lidocaine Patch] 4 % Adhesive Patch,Medicated TOPICAL ibuprofen 600 mg tablet cephalexin 500 mg capsule 500 mg PO Q12H 7 Days Qty: 14 0RF naproxen 375 mg tablet 375 mg PO BID PRN (Reason: pain) Qty: 10 0RF Follow-up/Referrals: Andrzej Porter MD [Physician, [employer] APPRENTICE] Rhett Roberts MD [Physician, Family Practice] UNKNOWN,DOCTOR [Primary Care Provider] Stand Alone Forms: Work/School Release IP
[2025-07-16 02:05] LABS: Hematocrit 42.9 % (37.0-47.0); Hemoglobin 13.3 g/dL (12.0-15.0); Immature Granulocyte Percent A 0.2 % (0-0.5); Lymphocytes Absolute Auto 3.33 K/mm3 (0.9-3.2); Mean Corpuscular HGB Conc 31.0 g/dl (32-36); Mean Corpuscular Hemoglobin 25.2 pg (26-34); Mean Corpuscular Volume 81.4 fl (80-100); Nucleated Red Blood Cells Absolute Auto 0.000 K/mm3 (0.0-0.012); Nucleated Red Blood Cells Perc 0.0 % (0.0-0.2); Platelet Count Result 405 k/mm3 (150-375); Red Blood Count 5.27 M/mm3 (4.2-5.4); White Blood Count 9.1 K/mm3 (4.5-10.0)
[2025-07-16] MEDS: ONDANSETRON INJ 4 MG/2 ML VIAL IV PUSH (02:11)
[2025-07-16] MEDS: SODIUM CHLORIDE 0.9% IV 1,000 ML 999 ML IV CONT (02:11)
[2025-07-16] MEDS: KETOROLAC 15 MG/ML VIAL (*BKC) IV PUSH (02:12)
[2025-07-16 02:17] LABS: Alanine Aminotransferase 18 U/L (6-35); Albumin Level 4.5 g/dL (3.5-5.1); Alkaline Phosphatase 55 U/L (38-126); Anion Gap 9 mmol/L (4-12); Aspartate Amino Transferase 25 U/L (14-36); Bilirubin,Total 0.8 mg/dL (0.2-1.3); Blood Urea Nitrogen 17 mg/dL (7-17); Calcium 9.6 mg/dL (8.4-10.2); Carbon Dioxide 26 mmol/L (22-30); Chloride 101 mmol/L (98-107); Estimated CRCL calculation 86 ml/min; Estimated Glomerular Filt Rate > 60; Glucose 97 mg/dL (65-110); Potassium 3.6 mmol/L (3.4-5.0); Sodium 136 mmol/L (137-145); Total Protein 8.1 g/dL (6.3-8.2)
[2025-07-16 03:07] LABS: SPREG INTERNAL CONTROL Positive
[2025-07-16] MEDS: MORPHINE SULFATE (*CRX) 2 MG/ML INJ IV PUSH (03:07)
[2025-07-16 03:08] LABS: Serum Qual hCG Negative
[2025-07-16 03:59] LABS: BEDSIDEPREGUCG Negative (Negative)
[2025-07-16 04:06] LABS: Add Urine Microscopic? YES; Appearance Urine Cloudy (Clear); Glucose Urine UA Negative (Negative); Leukocyte Esterase Ur Negative LEU/UL (Negative); Nitrate Urine Negative (Negative); Non Pathogenic Casts 0-2; Specific Grav Ur > 1.045 (1.001-1.035)
== END 2025-07-16 04:44 | disposition home or self-care (01) ==
PROVIDERS: Emergency Provider Student in an Organized Health Care Education/Training Program
DX: K52.9 Noninfective gastroenteritis and colitis, unspecified (principal); J45.909 Unspecified asthma, uncomplicated
CPT/HCPCS: 36415; 74177; 80053; 81001; 81025; 84703; 85025; 96361; 96374; 96375; 99284; J1885; J2270; J2405; J7030; Q9967